=== PATIENT | male | born 1965 | race Caucasian/White ===

== ENCOUNTER 2018-09-13 19:39 | Inpatient (IN) | payer OTHER ==
[~2018-09-13] VITALS: Ht 177.8 cm; Wt 106.3 kg
[2018-09-13 19:50] VITALS: BP 196/118
[2018-09-13] MEDS ORDERED: HEPARIN for IV BOLUS 10,000 UNIT/10 ML VIAL. IV PRN (21:00)
[2018-09-13] MEDS ORDERED: HEPARIN 25,000UTS/500ML PREMIX 500 ML IV PRN (21:30)
[2018-09-13] MEDS: MULTIVIT INFUSN,ADULT 4,VIT K 10 ML, THIAMINE INJ 100 MG, FOLIC ACID INJ 1 MG in IV NOR... IV SCH (21:43)
[2018-09-13] MEDS: ATORVASTATIN CALCIUM 20 MG TABLET PO SCH (21:43)
[2018-09-13] MEDS: METOPROLOL TART IMMED RELEASE 50 MG TABLET. PO SCH (21:43)
[2018-09-13 23:00] VITALS: BP 155/91
[2018-09-13 23:12] LABS: BASO % 1 % (0-3); EOS # 0.1 x10^3/uL (0.0-0.7); EOS % 1 % (0-3); HEMATOCRIT 42.8 % (39.0-53.0); HEMOGLOBIN 14.6 g/dL (13.0-17.5); LYMPH # 2.2 x10^3/uL (1.0-4.8); LYMPH % 25 % (24-48); MEAN CORPUSCULAR HEMOGLOBIN 30 pg (25-35); MEAN CORPUSCULAR HGB CONC 34 g/dL (31-37); MEAN CORPUSCULAR VOLUME 87 fL (79-100); MONO # 0.5 x10^3/uL (0.0-1.1); MONO % 5 % (0-9); NEUT # 6.1 x10^3uL (1.8-7.7); NEUT % 68 % (31-73); PLATELET COUNT 245 x10^3/uL (140-400); RED BLOOD COUNT 4.91 x10^6/uL (4.30-5.70); RED CELL DISTRIBUTION WIDTH 12.7 % (11.5-14.5); WHITE BLOOD COUNT 8.9 x10^3/uL (4.0-11.0)
[2018-09-13 23:33] LABS: ALBUMIN 3.2 g/dL (3.4-5.0); ALBUMIN/GLOBULIN RATIO 0.9 (1.0-1.7); CALCIUM 8.6 mg/dL (8.5-10.1); CREATININE 0.8 mg/dL (0.7-1.3); GFR 100.7; TOTAL BILIRUBIN 0.6 mg/dL (0.2-1.0); TOTAL PROTEIN 6.7 g/dL (6.4-8.2)
[2018-09-13 23:37] LABS: POTASSIUM 2.7 mmol/L (3.5-5.1)
[2018-09-14] VITALS (8 sets, daily range): BP systolic 134–169; BP diastolic 88–107
[2018-09-14] MEDS ORDERED: POTASSIUM CHLORIDE 20 MEQ TABLET.ER. PO ONE
[2018-09-14 06:08] LABS: BASO # 0.1 x10^3/uL (0.0-0.2); BASO % 1 % (0-3); EOS # 0.1 x10^3/uL (0.0-0.7); EOS % 1 % (0-3); HEMATOCRIT 42.9 % (39.0-53.0); HEMOGLOBIN 14.4 g/dL (13.0-17.5); LYMPH # 1.8 x10^3/uL (1.0-4.8); LYMPH % 23 % (24-48); MEAN CORPUSCULAR HEMOGLOBIN 30 pg (25-35); MEAN CORPUSCULAR HGB CONC 34 g/dL (31-37); MEAN CORPUSCULAR VOLUME 89 fL (79-100); MONO # 0.7 x10^3/uL (0.0-1.1); MONO % 9 % (0-9); NEUT # 5.1 x10^3uL (1.8-7.7); NEUT % 66 % (31-73); PLATELET COUNT 248 x10^3/uL (140-400); RED BLOOD COUNT 4.84 x10^6/uL (4.30-5.70); RED CELL DISTRIBUTION WIDTH 13.1 % (11.5-14.5); WHITE BLOOD COUNT 7.8 x10^3/uL (4.0-11.0)
[2018-09-14 06:20] LABS: ALBUMIN 3.2 g/dL (3.4-5.0); ALBUMIN/GLOBULIN RATIO 0.9 (1.0-1.7); CREATININE 1.1 mg/dL (0.7-1.3); GFR 69.8; TOTAL BILIRUBIN 0.8 mg/dL (0.2-1.0); TOTAL PROTEIN 6.9 g/dL (6.4-8.2)
[2018-09-14 06:23] LABS: CHOLESTEROL/HDL RATIO 3.4
[2018-09-14 06:28] LABS: POTASSIUM 4.1 mmol/L (3.5-5.1)
[2018-09-14] MEDS ORDERED: ASPIRIN 325 MG TABLET PO SCH (08:00)
--- NOTE | 2018-09-14 08:56 | PDOC2 ---
NISH ROGERS ASPARAGUS BUNCHER 09/14/18 0856: CARDIAC CONSULT DATE OF CONSULT Date of Consult DATE: 09/14/18 TIME: 08:53 REASON FOR CONSULT Reason for Consult: Chest pain Elevated troponin REFERRING PHYSICIAN Referring Physician: Dr. Balbuena SOURCE Source: Chart review, Patient HISTORY OF PRESENT ILLNESS HISTORY OF PRESENT ILLNESS This is a 52 yo male who initially presented to [facility] secondary to chest pain. Patient reports he was out push mowing grass yesterday and became significantly short of breath and had pain in his central chest. Describes as pressure. No radiation. Had episode of nausea/vomiting. Was diaphoretic, but report this is chronic. No dizziness or palpitations. No worsening factors. Seem to improved after sitting and rest for about 30 minutes. Patient does report experiencing shortness of breath and chest pain with exertion intermittently for the last 6 months. More intense the last couple of days. Initial labs notable for K 2.8, Mg, 1.7, Trop 0.212, NT Pro BNP 4886. Blood pressure upon admit 192/108. With the elevated troponin level and concerns for ACS, heparin gtt was initiated and patient was transferred to [place] for further evaluation and treatment. No further pain overnight. Patient does have history of hypertension and was previously on medical therapy. Reports he did not care for his primary care provider so he stopped going for followup and ran out of his medication. Reports having normal cath x2 with most recent about 10- 15 years ago. PAST MEDICAL HISTORY Cardiovascular: HTN Pulmonary: No pertinent hx CENTRAL NERVOUS SYSTEM: Other (no pertinent history ) GI: No pertinent hx Heme/Onc: No pertinent hx Hepatobiliary: No pertinent hx Psych: No pertinent hx Musculoskeletal: Other (no pertinent history ) Rheumatologic: No pertinent hx Infectious disease: No pertinent hx ENT: No pertinent hx Renal/: No pertinent hx Endocrine: No pertinent hx Dermatology: No pertinent hx PAST SURGICAL HISTORY Past Surgical History: Other (afshin in right leg ) FAMILY HISTORY Family History: Coronary Artery Disease (father s/p CABG), Diabetes, Hypertension SOCIAL HISTORY Smoke: No ALCOHOL: other (5-6 beers per day- sometimes more ) Drugs: None Lives: with Family CURRENT MEDICATIONS CURRENT MEDICATIONS Current Medications Medications (Trade) Dose Ordered Sig/Zaid Route PRN Reason Start Time Stop Time Status Last Admin Dose Admin Metoprolol Tartrate (Lopressor) 50 mg BID PO 09/13/18 21:30 09/13/18 21:43 Atorvastatin Calcium (Lipitor) 20 mg QHS PO 09/13/18 21:30 09/13/18 21:43 Multivitamins 10 ml/Thiamine HCl 100 mg/Folic Acid 1 mg/Sodium Chloride 1,011.2 ml @ 100 mls/ hr DAILY IV 09/13/18 21:30 09/17/18 19:07 09/13/18 21:43 Heparin Sodium (Porcine) (Heparin Sodium) 2,700 unit PRN Q6HRS PRN IV FOR UFH LEVEL LESS THAN 0.2 09/13/18 21:00 09/14/18 08:30 Potassium Chloride 40 meq/ Dextrose/Sodium Chloride 1,020 ml @ 100 mls/hr [id number] IV 09/14/18 00:00 09/14/18 00:00 Potassium Chloride (Klor-Con) 40 meq 1X ONCE PO 09/14/18 00:00 09/14/18 00:01 DC 09/13/18 23:59 ALLERGIES ALLERGIES: Coded Allergies: No Known Drug Allergies (Unverified , 09/13/18) ROS Review of System 14 point ROS conducted with pertinent positives noted above in HPI. PHYSICAL EXAM General: Alert, Oriented X3, Cooperative, No acute distress HEENT: Atraumatic, PERRLA, Mucous membr. moist/pink Lungs: Clear to auscultation, Normal air movement Heart: Regular rate, Normal S1, Normal S2 Abdomen: Soft, No tenderness Extremities: No edema, Normal pulses Skin: No breakdown, No significant lesion Neuro: Normal speech, Sensation intact Psych/Mental Status: Mental status NL, Mood NL, Other (anxious, wanting to eat) MUSCULOSKELETAL: No deformity VITALS VITALS Vital Signs Date Time Temp Pulse Resp B/P (MAP) Pulse Ox O2 Delivery O2 Flow Rate FiO2 09/14/18 03:34 98.2 62 18 152/92 (112) 98 Room Air 98.2 LABS Lab: Laboratory Tests Test 09/13/18 23:00 09/14/18 05:00 White Blood Count 8.9 x10^3/uL (4.0-11.0) 7.8 x10^3/uL (4.0-11.0) Red Blood Count 4.91 x10^6/uL (4.30-5.70) 4.84 x10^6/uL (4.30-5.70) Hemoglobin 14.6 g/dL (13.0-17.5) 14.4 g/dL (13.0-17.5) Hematocrit 42.8 % (39.0-53.0) 42.9 % (39.0-53.0) Mean Corpuscular Volume 87 fL (79-100) 89 fL (79-100) Mean Corpuscular Hemoglobin 30 pg (25-35) 30 pg (25-35) Mean Corpuscular Hemoglobin Concent 34 g/dL (31-37) 34 g/dL (31-37) Red Cell Distribution Width 12.7 % (11.5-14.5) 13.1 % (11.5-14.5) Platelet Count 245 x10^3/uL (140-400) 248 x10^3/uL (140-400) Neutrophils (%) (Auto) 68 % (31-73) 66 % (31-73) Lymphocytes (%) (Auto) 25 % (24-48) 23 % (24-48) Monocytes (%) (Auto) 5 % (0-9) 9 % (0-9) Eosinophils (%) (Auto) 1 % (0-3) 1 % (0-3) Basophils (%) (Auto) 1 % (0-3) 1 % (0-3) Neutrophils # (Auto) 6.1 x10^3uL (1.8-7.7) 5.1 x10^3uL (1.8-7.7) Lymphocytes # (Auto) 2.2 x10^3/uL (1.0-4.8) 1.8 x10^3/uL (1.0-4.8) Monocytes # (Auto) 0.5 x10^3/uL (0.0-1.1) 0.7 x10^3/uL (0.0-1.1) Eosinophils # (Auto) 0.1 x10^3/uL (0.0-0.7) 0.1 x10^3/uL (0.0-0.7) Basophils # (Auto) 0.0 x10^3/uL (0.0-0.2) 0.1 x10^3/uL (0.0-0.2) Heparin Anti-Xa Act, Unfractionated 0.46 IU/mL (0.30-0.70) 0.15 IU/mL (0.30-0.70) Sodium Level 141 mmol/L (136-145) 141 mmol/L (136-145) Potassium Level 2.7 mmol/L (3.5-5.1) 4.1 mmol/L (3.5-5.1) Chloride Level 100 mmol/L (98-107) 101 mmol/L (98-107) Carbon Dioxide Level 28 mmol/L (21-32) 33 mmol/L (21-32) Anion Gap 13 (6-14) 7 (6-14) Blood Urea Nitrogen 12 mg/dL (8-26) 15 mg/dL (8-26) Creatinine 0.8 mg/dL (0.7-1.3) 1.1 mg/dL (0.7-1.3) Estimated GFR (Cockcroft-Gault) 100.7 69.8 BUN/Creatinine Ratio 15 (6-20) 14 (6-20) Glucose Level 115 mg/dL (70-99) 119 mg/dL (70-99) Calcium Level 8.6 mg/dL (8.5-10.1) 9.0 mg/dL (8.5-10.1) Total Bilirubin 0.6 mg/dL (0.2-1.0) 0.8 mg/dL (0.2-1.0) Aspartate Amino Transf (AST/SGOT) 26 U/L (15-37) 27 U/L (15-37) Alanine Aminotransferase (ALT/SGPT) 33 U/L (16-63) 34 U/L (16-63) Alkaline Phosphatase 77 U/L (46-116) 75 U/L (46-116) Troponin I Quantitative 0.247 ng/mL (0.000-0.055) 0.225 ng/mL (0.000-0.055) Total Protein 6.7 g/dL (6.4-8.2) 6.9 g/dL (6.4-8.2) Albumin 3.2 g/dL (3.4-5.0) 3.2 g/dL (3.4-5.0) Albumin/Globulin Ratio 0.9 (1.0-1.7) 0.9 (1.0-1.7) Triglycerides Level 84 mg/dL (0-150) Cholesterol Level 156 mg/dL (0-200) LDL Cholesterol, Calculated 93 mg/dL (0-100) VLDL Cholesterol, Calculated 17 mg/dL (0-40) Non-HDL Cholesterol Calculated 110 mg/dL (0-129) HDL Cholesterol 46 mg/dL (40-60) Cholesterol/HDL Ratio 3.4 ASSESSMENT/PLAN ASSESSMENT/PLAN 1. Chest pain, with typical features 3. NSTEMI; peak 0.247. On heparin gtt 3. Accelerated hypertension 4. Hypokalemia; resolved 5. Hypomagnesemia 6. ETOH; 6 beers/day Recommendations Continue ASA, BB Add lisinopril for BP control Hydralazine IV PRN Recheck Mg Keep NPO Given risk factors and symptomatology in the setting of elevated troponin level, recommend cardiac cath for definitive evaluation. R/b/a discussed and patient is agreeable. Will proceed with later this morning. CODY MEYERS MD 09/14/18 1056: CARDIAC CONSULT ASSESSMENT/PLAN ASSESSMENT/PLAN Patient seen and examined. Agree with TRAINING AND DEVELOPMENT PROJECT LEADER's assessment and plan. Clinical picture consistent with non-STEMI Continue heparin infusion per protocol and proceed with cardiac catheterization and possible angioplasty We will titrate oral antihypertensives for better blood pressure control Thank you for your consultation NISH ROGERS APRN September 14, 2018 08:56 CODY MEYERS MD September 14, 2018 10:56
[2018-09-14] MEDS: MULTIVIT INFUSN,ADULT 4,VIT K 10 ML, THIAMINE INJ 100 MG, FOLIC ACID INJ 1 MG in IV NOR... IV SCH (09:00)
[2018-09-14] MEDS ORDERED: ANTI-COAG MONITOR BY PHARMACY. MC PRN (09:30)
[2018-09-14] MEDS ORDERED: hydrALAZINE 20 MG/ML VIAL. IVP PRN (09:30)
[2018-09-14] MEDS ORDERED: NITROGLYCERIN 200 MCG/2 ML SYRINGE FOR CATH/VASC LAB. ONE (09:49)
[2018-09-14] MEDS ORDERED: VERAPAMIL 5 MG/2 ML VIAL. ONE (09:49)
[2018-09-14] MEDS: ASPIRIN ENTERIC COATED 81 MG TABLET.DR. PO SCH (09:49)
[2018-09-14] MEDS: LISINOPRIL 10 MG TABLET PO SCH (09:49)
[2018-09-14] MEDS ORDERED: fentaNYL PF VIAL 100 MCG/2 ML VIAL ONE (09:49)
[2018-09-14] MEDS ORDERED: HEPARIN for IV BOLUS 10,000 UNIT/10 ML VIAL. ONE (09:49)
[2018-09-14] MEDS: METOPROLOL TART IMMED RELEASE 50 MG TABLET. PO SCH ×2 (09:49→20:41)
[2018-09-14] MEDS ORDERED: MIDAZOLAM HCL/PF 2 MG/2 ML VIAL. ONE ×2 (09:49→10:30)
[2018-09-14] MEDS ORDERED: IOHEXOL 300 MG/ML 100ML VIAL. ONE (09:50)
[2018-09-14] MEDS ORDERED: LIDOCAINE 1% PF 2 ML VIAL. ONE (09:50)
[2018-09-14] MEDS ORDERED: hydrALAZINE 20 MG/ML VIAL. ONE (10:32)
[2018-09-14] MEDS ORDERED: NITROGLYCERIN 200 MCG/2 ML SYRINGE FOR CATH/VASC LAB. IART ONE (10:45)
[2018-09-14] MEDS ORDERED: VERAPAMIL 5 MG/2 ML VIAL. IART ONE (10:45)
[2018-09-14] MEDS ORDERED: HEPARIN for IV BOLUS 10,000 UNIT/10 ML VIAL. IART ONE (10:45)
[2018-09-14] MEDS ORDERED: fentaNYL PF VIAL 100 MCG/2 ML VIAL IV ONE (10:45)
[2018-09-14] MEDS ORDERED: LIDOCAINE 1% PF 2 ML VIAL. INJ ONE (10:45)
[2018-09-14] MEDS ORDERED: MIDAZOLAM HCL/PF 2 MG/2 ML VIAL. IV ONE (10:45)
[2018-09-14] MEDS ORDERED: IOHEXOL 300 MG/ML 100ML VIAL. IART ONE (10:45)
--- NOTE | 2018-09-14 10:58 | PDOC ---
MODERATE SEDATION ASSESSMENT RISKS/ALTERNATIVES Risks/Alternatives Risks and alternatives of this type of sedation and procedure discussed with: RISK/ALTERNATIVES: Patient H & P ON CHART H & P H & P on chart and reviewed for co-morbid conditions and appropriate labs. H&P ON CHART: Yes STATUS PREG STATUS ASSESSED: N/A MEDS/ALLERGIES REVIEWED Meds/Allergies Reviewed Medications and Allergies including time and route of recently administered narcotics and sedatives. MEDS/ALLERGIES REVIEWED: Yes ASA RATING ASA RATING: II AIRWAY ASSESSMENT Airway Assessment Airway patency, oral function limitations, presence of caps, crowns, dentures, partials, and ability to extend neck assessed. AIRWAY ASSESSMENT: Yes MALLAMPATI SCORE MALLAMPATI SCORE: II PRE-SEDATION ASSESSMENT PRE-SEDATION ASSESSMENT: Yes CODY MEYERS MD September 14, 2018 10:58
[2018-09-14] MEDS ORDERED: NITROGLYCERIN SUBLINGUAL 0.4 MG BOTTLE OF 25. SL PRN (11:00)
--- NOTE | 2018-09-14 11:12 | CARD ---
MR#: [id number] Date of Study: 09/14/2018 Ordering Physician: CODY MEYERS, Referring Physician: STANFORD EUBANKS, Tech: RT Jing (R) HUY APPROVED REPORT Technologist: RT Jing (R) HUY Nurse: Peyton Stinson R.N. Procedure(s) performed: Left heart catheterization and selective coronary angiography via right trans radial approach Fluoro time 3.1 mins Dose 48.2798 Gycm2 Contrast 66 ml omnipaque Moderate sedation 40 mins INDICATION The indication(s) include : non-STEMI . [facility] Clinical Frailty Scale [facility] Clinical Frailty Scale: Managing Well Heart Failure Heart Failure: Yes If Yes, Newly Diagnosed: No If Yes, HF Type: Diastolic If Yes, NYHA Class: Class III PROCEDURE NARRATIVE After explaining the risks, benefits and alternative options, informed consent was obtained from dave ent. Patient was brought to the cardiac Wood Type Cutter and right wrist was prepped and draped in the usual fashion after confirming a positive modified Vaughn's test. Arterial access was obtained in the righ t radial artery and a 6 Guamanian sheath was inserted. 6 Guamanian Clive catheter was used to perform pierre ective angiography of the left and right coronary arteries. 6 Guamanian pigtail catheter was used to me asure LVEDP and transaortic gradients. Left ventriculography was not performed due to elevated EDP. P atient tolerated the procedure well. Hemostasis was achieved using TR band. There were no immediate complications. The following findings were noted. FINDINGS 1. Hemodynamics: Elevated left ventricular end-diastolic pressure of 43 mmHg consistent with acute o n chronic diastolic heart failure. No pullback gradient across the aortic valve. 2. Coronary angiography: a. The left main coronary artery arose from the left sinus of Valsalva, was short, gave rise to the left anterior descending and left circumflex arteries and did not show any significant stenosis. b. The left anterior descending artery did not show any significant stenosis. c. The left circumflex artery was a large and dominant vessel that did not show any significant sten osis. d. The right coronary artery was a small and nondominant vessel arising from the right sinus of Vals grimm that did not show any significant stenosis. Conclusion 1. No significant coronary artery disease 2. Significantly elevated LVEDP consistent with acute on chronic diastolic heart failure. Recommendations Medical Therapy Signed by : Cody Meyers, Electronically Approved : 09/14/2018 11:11:51
[2018-09-14] MEDS: IV 1/2 NORMAL SALINE 1,000 ML IV SCH (12:00)
--- NOTE | 2018-09-14 12:36 | NUR ---
SS following for discharge planning. SS reviewed pt chart. Pt is from home and is currently on room air. No discharge needs noted at this time. SS will continue to follow for discharge planning.
[2018-09-14] MEDS: POTASSIUM CHLORIDE 40 MEQ in IV DEXTROSE 5 %-0.45 % NACL 1,000 ML IV SCH ×3 (20:40)
[2018-09-14] MEDS: ATORVASTATIN CALCIUM 20 MG TABLET PO SCH (20:41)
[2018-09-15] MEDS: POTASSIUM CHLORIDE 40 MEQ in IV DEXTROSE 5 %-0.45 % NACL 1,000 ML IV SCH ×3 (02:36→16:48)
[2018-09-15 03:13] VITALS: BP 140/87
[2018-09-15] MEDS: IV 1/2 NORMAL SALINE 1,000 ML IV SCH (04:40)
[2018-09-15 07:00] VITALS: BP 143/93
[2018-09-15] MEDS: MULTIVIT INFUSN,ADULT 4,VIT K 10 ML, THIAMINE INJ 100 MG, FOLIC ACID INJ 1 MG in IV NOR... IV SCH (09:00)
[2018-09-15] MEDS: ASPIRIN ENTERIC COATED 81 MG TABLET.DR. PO SCH (10:28)
[2018-09-15] MEDS: METOPROLOL TART IMMED RELEASE 50 MG TABLET. PO SCH (10:28)
[2018-09-15] MEDS: LISINOPRIL 10 MG TABLET PO SCH (10:28)
--- NOTE | 2018-09-15 10:35 | CARD ---
MR#: [id number] Date of Study: 09/15/2018 Ordering Physician: LORIE SMALL, Referring Physician: STANFORD EUBANKS, Tech: Charisse Monahan APPROVED REPORT EXAM: Two-dimensional and M-mode echocardiogram with Doppler and color Doppler. INDICATION Congestive Heart Failure RISK FACTORS Hypertension 2D DIMENSIONS RVDd3.8 (2.9-3.5cm)Left Atrium(2D)5.1 (1.6-4.0cm) IVSd1.1 (0.7-1.1cm)Aortic Root(2D)3.2 (2.0-3.7cm) LVDd6.1 (3.9-5.9cm)LVOT Diameter2.1 (1.8-2.4cm) PWd1.4 (0.7-1.1cm)LVDs4.2 (2.5-4.0cm) FS (%) 30.7 %SV107.2 ml Aortic Valve AoV Peak Travis.110.3cm/sAoV VTI16.0cm AO Peak GR.4.9mmHgLVOT Peak Travis.78.4cm/s LVOT VTI 14.76cmAO Mean GR.3mmHg LAURENT (VMAX)1.81zc5DBY (VTI)3.30cm2 Mitral Valve MV E Agartevc12.6cm/sMV DECEL TBGH070rt MV A Vpdmxgau10.6cm/sMV MPQ19ij E/A Ratio2.8MVA (PHT)5.66cm2 TDI E/Lateral E'13.9E/Medial E'15.6 Pulmonary Valve PV Peak Ulzfunwn23.8cm/sPV Peak Grad.4mmHg Tricuspid Valve TR P. Jtuawbrp024po/sRAP YCYDAPUA29isKv TR Peak Gr.66kkNvNGFW34zjLo Pulmonary Vein S1 Edlhsxoz69.5cm/sD2 Tpcmgmfg93.1cm/s PVa efdeyzsn533kjzv LEFT VENTRICLE The Left Ventricle is borderline dilated. There is normal left ventricular wall thickness. The left v entricular systolic function is moderately impaired. The Ejection Fraction is 30-35%. There is global hypokinesis of the left ventricle. The left ventricular diastolic function and filling is normal for age. RIGHT VENTRICLE The right ventricle is mildly dilated. There is normal right ventricular wall thickness. Systolic fun ction is mildly reduced. ATRIA The left atrium is mildly dilated. The right atrium is moderately dilated. The interatrial septum is intact with no evidence for an atrial septal defect or patent foramen ovale as noted on 2-D or Dopple r imaging. AORTIC VALVE The aortic valve is thickened but opens well. Doppler and Color Flow revealed no significant aortic r egurgitation. There is no significant aortic valvular stenosis. MITRAL VALVE The mitral valve is mildly thickened. There is no evidence of mitral valve prolapse. There is no mitr al valve stenosis. Doppler and Color-flow revealed trace to mild mitral regurgitation. TRICUSPID VALVE The tricuspid valve is normal in structure and function. Doppler and Color Flow revealed trace tricus pid regurgitation with an estimated PAP of 40 mmHg. There is mild-moderate pulmonary hypertension. Th ere is no tricuspid valve stenosis. PULMONIC VALVE The pulmonic valve is not well visualized. Doppler and Color Flow revealed no pulmonic valvular regur gitation. GREAT VESSELS The aortic root is normal in size. The IVC is dilated and collapses <50% with inspiration. PERICARDIAL EFFUSION There is no evidence of significant pericardial effusion. Critical Notification Critical Value: No <Conclusion> The left ventricular systolic function is moderately impaired. The Ejection Fraction is 30-35%. The left atrium is mildly dilated. Trace to mild mitral regurgitation. Trace tricuspid regurgitation with an estimated PAP of 40 mmHg. There is no evidence of significant pericardial effusion. Signed by : Rene Hutchison, Electronically Approved : 09/15/2018 10:35:13
[2018-09-15] MEDS ORDERED: LISI10TA2 PO (10:50)
[2018-09-15] MEDS ORDERED: ATOR20TA PO (10:50)
[2018-09-15] MEDS ORDERED: ASPI-630 PO (10:50)
[2018-09-15] MEDS ORDERED: METO50TA6 PO (10:50)
[2018-09-15 11:17] VITALS: BP 153/98
--- NOTE | 2018-09-15 11:31 | HP ---
ADMIT DATE: 09/13/2018 HISTORY OF PRESENT ILLNESS: The patient is a 52-year-old male patient who was seen initially at [facility] Emergency Room with a complaint of chest pain. He stated that he was out fishing, moving grass yesterday, became significantly short of breath and had retrosternal chest pain, described as pressure. It does not radiate, had episodes of nausea, vomiting, diaphoretic, but reports this is chronic. He denied any dizziness or palpitation. Denied any aggravating or relieving factors. He said that symptom has improved at rest for about 30 minutes. He did complain of shortness of breath and chest pain with exertion intermittently for the last 6 months, has been more intense in the last couple of days. He was seen in the Emergency Room, and his lab work showed that he was hypokalemic, hypomagnesemic. His troponin was high at 0.12 and beta natriuretic peptide was high at 4886. Blood pressure was also extremely high at 192/108, and therefore, he was started on heparin drip for possible acute coronary syndrome, was transferred to [facility] for further evaluation and treatment by the cardiology team. PAST MEDICAL HISTORY: Significant for hypertension, but no other important medical problems. PAST SURGICAL HISTORY: Broken right leg with intramedullary nail. FAMILY HISTORY: Significant for coronary artery disease in his father, status post CABG. Also his father has diabetes and hypertension. SOCIAL HISTORY: He lives with his girlfriend, has never before, has no children. He does not smoke, but drinks 5-6 beers per day, sometimes more. Does not use any illicit drugs. ALLERGIES: He has no known drug allergies. MEDICATIONS: He was on no medications. PHYSICAL EXAMINATION: GENERAL: On arrival to the Emergency Room, he looked well and was in no apparent respiratory distress. No pallor, jaundice, cyanosis or thyromegaly. No jugular venous distension. No lower limb edema. VITAL SIGNS: His heart rate was 110, blood pressure 196/118, temperature was 99, respiratory rate was 20 and oxygen saturation was 94%. HEAD, EYES, EARS, NOSE AND THROAT: Showed normocephalic, atraumatic. NECK: Supple. HEART: Showed normal first and second heart sounds. No gallop, rub or murmur. CHEST: Shows central trachea, equal bilateral expansion, air entry, vesicular sounds. No crepitation or rhonchi. ABDOMEN: Markedly distended, soft, nontender. NEUROLOGIC: He is awake, alert, responding appropriately. All cranial nerves intact. EXTREMITIES: He moves extremities without difficulty, ambulates without assistance or assistive devices. PERTINENT LABORATORY DATA: While at [facility] Emergency Room showed that he was hypokalemic with a potassium of 2.8. Hypomagnesemic with a magnesium 1.7. His troponin was elevated at 0.12, and his beta natriuretic peptide was 4886. His EKG showed he was in sinus tachycardia, but no evidence of ST segment elevation. ASSESSMENT AND PLAN: He was basically transferred to [facility] with chest pain, accelerated hypertension, hypokalemia, hypomagnesemia, alcoholism and non-ST segment elevation myocardial infarction. He was started on aspirin, metoprolol 50 mg twice a day and basically consulted the direct service worker and also started him on alcohol withdrawal protocol given the amount of alcohol he is drinking. STANFORD EUBANKS MD DR: MARCIE/jenn JOB#: [id number] / [id number]
--- NOTE | 2018-09-15 12:54 | DS ---
DATE OF DISCHARGE: 09/15/2018 The patient is a 52-year-old male patient who was originally seen at [facility] Emergency Room with retrosternal chest pain. He was found to be hypokalemic, hypomagnesemic and has elevated troponin. BNP was high at 4886. Also his blood pressure was extremely high and given that he has what seemed to be non-ST segment elevation myocardial infarction started on heparin drip and transferred to [facility]. We started him also on metoprolol and added lisinopril and Lipitor. Given he is a heavy alcohol drinker, we did start him also on alcohol withdrawal protocol. He was seen in consultation by the Cardiology team and he underwent cardiac catheterization, which basically showed that there is no significant coronary artery disease; however, has significantly elevated left ventricular end-diastolic pressure consistent with ehybk-rb-ogyefdl diastolic heart failure. His blood pressure is now much better controlled on metoprolol and lisinopril and has had no significant coronary artery disease and blood pressure is much better controlled. I have had a lengthy discussion with him about alcoholism and his ____ including high blood pressure and heart disease. He stated he had attempted before to quit, but is having hard time with that; however, he remained stable and a decision was made to discharge him home to continue with all his medication. PHYSICAL EXAMINATION: GENERAL: When I saw him today, he looked well and was clearly in no apparent respiratory distress. No pallor, jaundice, cyanosis, or thyromegaly. No jugular venous distension. No lower limb edema. VITAL SIGNS: His heart rate was 57, blood pressure 143/93, temperature was 97.6, respiratory rate was 18 and oxygen saturation was 93% on room air. HEAD, EYES, EARS, NOSE AND THROAT: Showed normocephalic and atraumatic. NECK: Supple. HEART: Showed normal first and second heart sounds. No gallop, rub or murmur. CHEST: Clear to auscultation. No crepitation or rhonchi. ABDOMEN: Distended, soft and nontender. NEUROLOGICAL: He is awake, alert, oriented to time, place and person. All cranial nerves are intact. He moves extremities without difficulty, ambulates without assistance or assistive devices. LABORATORY DATA: As of yesterday showed hemoglobin of 14, hematocrit 42 with normal white cell count and platelets. His BUN was 15 and creatinine 1.1. His potassium and magnesium were normal. DISCHARGE MEDICATIONS: He was discharged home to continue on following medications: Aspirin 81 mg once a day, atorvastatin calcium for Lipitor 20 mg at bedtime, lisinopril 10 mg once a day and metoprolol tartrate 50 mg twice a day. FINAL DISCHARGE DIAGNOSES: 1. Chest pain with non-ST segment elevation. His troponin has peaked at 0.247. 2. Accelerated hypertension, improved. 3. Hypokalemia, resolved. 4. Hypomagnesemia, resolved. 5. He has also a problem with alcoholism. Counseling was provided. STANFORD EUBANKS MD DR: MARCIE/jenn JOB#: [id number] / [id number]
--- NOTE | 2018-09-15 14:37 | PDOC ---
LORIE SMALL CIGARETTE MAKER 09/15/18 1437: CARDIO Progress Notes Date and Time Date of Service 09/15/2018 Time of Evaluation 1430 Subjective Subjective: No Chest Pain, No shortness of breath, No Palpitations Vitals Vitals Vital Signs Date Time Temp Pulse Resp B/P (MAP) Pulse Ox O2 Delivery O2 Flow Rate FiO2 09/15/18 11:17 97.9 65 18 153/98 (116) 94 Room Air 97.9 Weight Weight [ ] Input and Output Intake and Output Intake and Output 09/15/18 07:00 Intake Total 3140 ml Output Total 1552 ml Balance 1588 ml Intake Oral 2140 ml IV Total 1000 ml Output Urine Total 1550 ml Stool Total 2 ml Physical Exam HEENT: Neck Supple W Full Motion Chest: Symmetric LUNGS: Clear to Auscultation Heart: S1S2, RRR (SR) Abdomen: Soft N/T Extremities: No Calf Tenderness Neurology: alert, oriented, follow commands Other Exams right wrist arteritomy site intact, no erythema or pain, neurovascular status to right hand intact Assessment Assessment 1. NICM: suspect from alcoholism. LHC unrevealing for CAD 2. Alcoholism: 6 beers daily 3. Acute systolic CHF: compensated. EF 30-35% 4. HTN: controlled Recommendations 1. Follow up in 2-3 weeks 2. Continue with Lasix therapy, BB and ACEi 3. Will consider for entresto as an outpt. 4. Refused lifevest for now, will rediscuss as an outpt 5. CHF education per staff 6. Curb ETOH. CODY MEYERS MD 09/15/185: CARDIO Progress Notes Assessment Assessment Patient seen and examined. Agree with INTERNATIONAL BANK MANAGER's assessment and plan. 2D echo showed moderate LV dysfunction Cath did not show any significant CAD Continue medical management for NICMP and repeat echo in 3 months LORIE SMALL APRN September 15, 2018 14:37 CODY MEYERS MD September 15, 2018 21:05
[2018-09-15] MEDS ORDERED: FURO20TA3 PO (14:40)
--- NOTE | 2018-09-15 17:54 | NUR ---
Discharge Note: KENNY MONTANO Discharge instructions and discharge home medications reviewed with Patient and a copy given. All questions have been answered and understanding verbalized. Prescriptions given for lisinopril, metoprolol, lasix, and atorvastatin. Instructions given for follow ups and lab work. Pt verbalized understanding.
--- NOTE | 2018-09-15 18:55 | PN ---
DATE: 09/15/2018 SUBJECTIVE: The patient was seen initially at [facility] with chest pain, was transferred to [facility], was started on heparin drip and started also on metoprolol and aspirin as well as alcohol withdrawal protocol and fluid to replenish potassium and magnesium. He underwent cardiac catheterization and basically, cardiac catheterization showed no significant coronary artery disease, significantly elevated left ventricular end-diastolic pressure consistent with acute on chronic diastolic heart failure. His blood pressure medications were adjusted. PHYSICAL EXAMINATION: GENERAL: When I saw him, he looked well and was clearly in no apparent respiratory distress. No pallor, jaundice, cyanosis or thyromegaly. No jugular venous distention. No lower limb edema. VITAL SIGNS: His heart rate was 62, blood pressure was 148/73, temperature was 98, respiratory rate was 16 and oxygen saturation was 94%. HEAD, EYES, EARS, NOSE AND THROAT: Normocephalic, atraumatic. NECK: Supple. HEART: Showed normal first and second heart sounds. No gallop, rub or murmur. CHEST: Clear to auscultation. No crepitation or rhonchi. ABDOMEN: Distended, soft, nontender. NEUROLOGIC: He is awake, alert, responding appropriately. All cranial nerves intact. He moves extremities without difficulty, ambulates without assistance or assistive devices. LABORATORY DATA: Showed a white cell count of 7800, hemoglobin 14, hematocrit 42, MCV 89 and platelet count 248,000. Serum sodium 141, potassium 4.1, chloride 101, bicarbonate 33, anion gap of 7, BUN 15, creatinine 1.1, estimated GFR was 69 mL per minute. His glucose was 119. Calcium was 9, magnesium 2.1. Total bilirubin, AST, ALT, alkaline phosphatase were normal. Total protein was 6.3, albumin 3.2. His serum triglycerides were 84, total cholesterol 156, LDL cholesterol was 93, VLDL was 17, HDL cholesterol 46 and the ratio was 3.6. His TSH was 2.556. His heparin was discontinued. In summary, this is a 52-year-old male patient who was admitted with chest pain. He has no evidence of significant obstructive coronary artery disease; however, had elevated left ventricular end-diastolic pressure consistent with acute on chronic diastolic heart failure, accelerated hypertension, slightly better. We will obviously continue to adjust his medications and lisinopril was added and we will continue with alcohol withdrawal protocol. He was started also on atorvastatin calcium. We will see how he does tomorrow morning. If his blood pressure seems to be much better controlled with this adjustment, he can be discharged home. STANFORD EUBANKS MD DR: MARCIE/jenn JOB#: [id number] / [id number]
[2018-09-16] MEDS ORDERED: FUROSEMIDE 40 MG TABLET. PO SCH (09:00)
== END 2018-09-15 18:00 | disposition home or self-care (01) | DRG 280 ==
LOC: 2 NORTH 19:39
PROVIDERS: ADMIT Internal Medicine; ATTEND Internal Medicine
PROC: 4A023N7 Measurement of Cardiac Sampling and Pressure, Left Heart, Percutaneous Approach (ICD-10-PCS; principal; 2018-09-14)
PROC: B2111ZZ Fluoroscopy of Multiple Coronary Arteries using Low Osmolar Contrast (ICD-10-PCS; 2018-09-14)
DX: I21.4 Non-ST elevation (NSTEMI) myocardial infarction (principal); I50.43 Acute on chronic combined systolic (congestive) and diastolic (congestive) heart failure; I42.9 Cardiomyopathy, unspecified; E87.6 Hypokalemia; E83.42 Hypomagnesemia; I11.0 Hypertensive heart disease with heart failure; F10.20 Alcohol dependence, uncomplicated; Z82.49 Family history of ischemic heart disease and other diseases of the circulatory system; Z83.3 Family history of diabetes mellitus
CPT/HCPCS: 36415; 80053; 80061; 83735; 84443; 84484; 85025; 85520; 93306; 93458; 99152; 99153; C1769; C1892; J1644; J2250; J3010; J3480; J3490; J7030; Q9967; 99285-25

== ENCOUNTER → 2018-10-05 | Outpatient (CLI) | payer OTHER ==
[2018-09-15 11:17] VITALS: BP 153/98
[~2018-10-05] MED LIST: ASPI-630 PO; ATOR20TA PO; FURO20TA3 PO; LISI10TA2 PO; METO50TA6 PO
[2018-10-05 15:37] LABS: CALCIUM 8.9 mg/dL (8.5-10.1); CREATININE 1.3 mg/dL (0.7-1.3); GFR 57.5; MAGNESIUM 1.7 mg/dL (1.8-2.4); POTASSIUM 3.9 mmol/L (3.5-5.1)
== END | disposition home or self-care (01) ==
LOC: LAB 14:36
PROVIDERS: ATTEND Nurse Practitioner Family
DX: I42.0 Dilated cardiomyopathy (principal); I50.9 Heart failure, unspecified
CPT/HCPCS: 36415; 80048; 83735

== ENCOUNTER 2019-07-15 13:18 | Inpatient (IN) | payer OTHER ==
[~2019-07-15] VITALS: Ht 177.8 cm; Wt 106.1 kg
[2019-07-15] VITALS (11 sets, daily range): BP systolic 128–156; BP diastolic 73–85
--- NOTE | 2019-07-15 13:38 | RAD ---
EXAM: CT Head without IV contrast INDICATION: Code stroke TECHNIQUE: Multi-detector row CT images were obtained of the head without the use of IV contrast. All CT scans performed at this facility utilize dose optimization techniques as appropriate to the exam, including the following: Automated exposure control and adjustment of the mA and/or KV according to patient size (this includes techniques or standardized protocols for targeted exams where dose is indication/reason for exam). COMPARISON: None FINDINGS: BRAIN PARENCHYMA: An acute intraparenchymal hemorrhage centered in the left basal ganglia measuring 6.0 x 4.0 x 6.2 cm is present, associated with surrounding vasogenic and cytotoxic edema and gyld-wl-rveni subfalcine shift of 9 mm. There is loss of guzman-white differentiation between the left caudate nucleus and anterior limb left internal capsule. Acute infarction is difficult to exclude. VENTRICLES & EXTRA-AXIAL SPACES: Ventricles are within normal limits. Basilar cisterns are patent. No pathologic extra-axial fluid collection or mass. Intracranial vessels appear diffusely increased in density which could reflect presence of underlying atherosclerotic vascular disease. ORBITS: Orbital contents are unremarkable. SINUSES: Visualized paranasal sinuses and mastoid air cells are clear. OSSEOUS & SOFT TISSUES: Calvarium and skull base are intact. IMPRESSION: Acute left basal ganglial hemorrhage with associated huzd-li-pzhrt midline shift of 9 mm. Estimated hematoma volume is 72 mL. FOR INTERNAL CODING PURPOSES Critical result: Findings discussed with MARGOT COLMENARES at 07/15/2019 1:30 PM. RESULT CODE: (C) Electronically signed by: Jorge Pichardo MD (07/15/2019 1:34 PM) [id number]
[2019-07-15 13:44] LABS: HEMATOCRIT 40.8 % (39.0-53.0); HEMOGLOBIN 13.7 g/dL (13.0-17.5); RED BLOOD COUNT 4.75 x10^6/uL (4.30-5.70); RED CELL DISTRIBUTION WIDTH 14.1 % (11.5-14.5)
[2019-07-15 13:51] LABS: CALCIUM 9.2 mg/dL (8.5-10.1); GFR 77.6; POTASSIUM 3.3 mmol/L (3.5-5.1)
--- NOTE | 2019-07-15 13:52 | PHYS DOC ---
Past Medical History Smoking Status: Never Smoker Adult General Chief Complaint Chief Complaint: NEURO SYMPTOMS/DEFICITS HPI HPI Patient is a 53 year old Male brought in by ems with stroke alert last seen normal 12:15 PM he collapsed had right-sided hemiparesis. Patient is on Eliquis as well as blood pressure medication history limited by acuity Review of Systems Review of Systems Limited by acuity Current Medications Current Medications Current Medications Medications (Trade) Dose Ordered Sig/Zaid Start Time Stop Time Status Last Admin Dose Admin Nicardipine HCl 50 mg/Sodium Chloride 250 ml @ 25 mls/hr CONT PRN 07/15/19 12:00 07/15/19 13:58 25 MLS/HR Ondansetron HCl (Zofran) 4 mg STK-MED ONCE 07/15/19 14:21 07/15/19 14:22 DC Prothrombin Complex Concent (Human) 5000 unit/ Miscellaneous 200 ml @ 400 mls/hr 1X ONCE 07/15/19 15:00 07/15/19 15:29 Allergies Allergies Allergies Coded Allergies Type Severity Reaction Last Updated Verified No Known Drug Allergies 09/13/18 No Physical Exam Physical Exam Constitutional: Well developed, ill-appearing HENT: Normocephalic, atraumatic, bilateral external ears normal, oropharynx moist, no oral exudates, nose normal. [] Eyes: PERRLA, EOMI, conjunctiva normal, no discharge. [] Neck: Normal range of motion, no tenderness, supple, no stridor. [] Cardiovascular:Heart rate regular rhythm, no murmur [] Lungs & Thorax: Bilateral breath sounds clear to auscultation [] Abdomen: Bowel sounds normal, soft, no tenderness, no masses, no pulsatile masses. [] Skin: Warm, dry, no erythema, no rash. [] Back: No tenderness, no CVA tenderness. [] Extremities: No tenderness, no cyanosis, no clubbing, ROM intact, no edema. [] Neurologic see stroke alert Current Patient Data Vital Signs Vital Signs Date Time Temp Pulse Resp B/P (MAP) Pulse Ox O2 Delivery O2 Flow Rate FiO2 07/15/19 13:18 98.4 104 22 208/126 (153) 98 Nasal Cannula 2.0 98.4 Lab Values Laboratory Tests Test 07/15/19 13:25 07/15/19 13:29 Glucose (Fingerstick) 111 mg/dL (70-99) H White Blood Count 10.0 x10^3/uL (4.0-11.0) Red Blood Count 4.75 x10^6/uL (4.30-5.70) Hemoglobin 13.7 g/dL (13.0-17.5) Hematocrit 40.8 % (39.0-53.0) Mean Corpuscular Volume 86 fL (79-100) Mean Corpuscular Hemoglobin 29 pg (25-35) Mean Corpuscular Hemoglobin Concent 34 g/dL (31-37) Red Cell Distribution Width 14.1 % (11.5-14.5) Platelet Count 250 x10^3/uL (140-400) Prothrombin Time 16.3 SEC (11.7-14.0) H Prothrombin Time INR 1.4 (0.8-1.1) H Activated Partial Thromboplast Time 32 SEC (24-38) Sodium Level 143 mmol/L (136-145) Potassium Level 3.3 mmol/L (3.5-5.1) L Chloride Level 102 mmol/L (98-107) Carbon Dioxide Level 32 mmol/L (21-32) Anion Gap 9 (6-14) Blood Urea Nitrogen 14 mg/dL (8-26) Creatinine 1.0 mg/dL (0.7-1.3) Estimated GFR (Cockcroft-Gault) 77.6 Glucose Level 120 mg/dL (70-99) H Calcium Level 9.2 mg/dL (8.5-10.1) Troponin I Quantitative < 0.017 ng/mL (0.000-0.055) Laboratory Tests 07/15/19 13:29 Laboratory Tests 07/15/19 13:29 EKG EKG [] Interpretation Time: A. fib rate 106 no STEMI seen. Radiology/Procedures Radiology/Procedures [] Impressions: IMPRESSION: Acute left basal ganglial hemorrhage with associated edap-yy-hojew midline shift of 9 mm. Estimated hematoma volume is 72 mL. FOR INTERNAL CODING PURPOSES Critical result: Findings discussed with MARGOT COLMENARES at 07/15/2019 1:30 PM. RESULT CODE: (C) Course & Med Decision Making Course & Med Decision Making Pertinent Labs and Imaging studies reviewed. (See chart for details) []acute stroke 53 yo m acute ich destiny talked 20 minutes into er course, recommends ffp, kcentra, get bp down to 150 admit not surgical at htis time will watch carefully d/w pharmacy [facility] WILL BE STAT GROUP THERAPY COUNSELOR'D FROM [facility] (VIA PREEXISTING POLICY AT [facility] WITHIN ON EH) WE ORDERD IT AT 141 PM. I CALLED TO [facility] ON IT THREE TIMES, OF 232 PM IT HAD JUST BEEN PICKED UP AND SHOULD BE HERE IN [address] mcmanus neuro at , ALSO SPOKE WITH A DR [facility] THERE WELL RE: ANDEXANET, PT LAST HAD ELIQUIS AT 445 AM SO WOULD NOT BE A CANDIDATE FOR ANDEXANET (SHJOULD BE WITHIN 8 HOURS FROM LAST DOSE) D/W DORIS ABOUT [facility] ABOVE, SEES PATIENT IN ER 224 PM PT ACTIVELY VOMITING I STAT WENT INTO ROOM AND SUCTIONED OUT AIRWAY, THEN INTUBATED HIM Intubation note emergent consent 7.52 MAC 4 grade 1 view confirmed with quantitative end-tidal CO2 as well as breath sounds chest x-ray is pending. Etomidate and succinylcholine were used and then propofol was used immediately for post intubation sedation. I also gave him a dose of Versed and fentanyl stat immediately after intubation to try to blunt any hypertensive response as well. Patient is on nicardipine in the emergency room the most recent blood pressure prior to the intubation was 170 systolic it is coming down we are targeting a blood pressure of 150. I ALSO ordered ffp i talked to blood bank to get that down and thawed stat. Family at the bedside notified of the critical nature of the situation. I spoke with Dr. Hwang who also was going to come to see the patient. Critical care time was 80 minutes exclusive of procedures. I also called Daylin from neurosurgery back at 230 and let her know about the intubation. Dragon Disclaimer Dragon Disclaimer This electronic medical record was generated, in whole or in part, using a voice recognition dictation system. Departure Departure Impression: Primary Impression: Intracranial hemorrhage Disposition: ADMITTED INPATIENT Admitting Physician: YEYO Condition: CRITICAL Referrals: UNKNOWN PCP NAME (PCP) NIHSS Stroke Scale NIH Stroke Scale: NIH Stroke Scale Response (Comments) Value Level of Consciousness: 0 Alert/Responsive 0 LOC Questions: 1 Answers one correctly 1 LOC Commands: 0 Performs both tasks 0 Best Gaze: 1 Partial gaze palsy 1 Visual: 2 Complete hemianopia 2 Facial Palsy: 1 Minor paralysis 1 Motor - Left Arm 0 No drift 0 Motor - Right Arm 4 No movement 4 Motor - Left Leg 0 No drift 0 Motor: Right Leg 4 No movement 4 Limb Ataxia: 1 One limb 1 Sensory: 2 Severe to total loss 2 Best Language: 2 Severe aphasia 2 Dysathria: 2 Severe 2 Extinction and Inattention: 2 Extinction 2 Total 22 MARGOT COLMENARES MD Jul 15, 2019 13:52
[2019-07-15 13:54] LABS: PROTHROMBIN TIME PATIENT 16.3 SEC (11.7-14.0)
--- NOTE | 2019-07-15 13:54 | EKG ---
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
[2019-07-15] MEDS ORDERED: ONDANSETRON PF 4 MG/2 ML VIAL. ONE (14:21)
[2019-07-15] MEDS: PROPOFOL 100 ML IV PRN ×3 (14:32→20:15)
--- NOTE | 2019-07-15 14:34 | PDOC1 ---
History and Physical Date of Admission Date of Admission DATE: 07/15/19 TIME: 14:31 Identification/Chief Complaint Chief Complaint Collapse, right hemiparesis Source Source: Caregiver, Chart review, Patient History of Present Illness History of Present Illness Mr Quiñones is a 53yo M w/ PMHx CAD, Afib, HLD, CHF who p/w collapse at work with right sided hemiparesis. Yesterday his significant other noted he was having some difficulty walking on the right side, but he was able to eat dinner. Woke up in the middle of the night for an evening snack, went back to sleep. His alarm went off 0400 this morning and his notes he hit snooze, then took his morning meds, which include Eliquis 5mg, then went to work at [employer] in [place], [place] where he works with his son. His significant other then received a call from Mr Quiñones's son at 1245 describing the [id number] today He was found fallen out of a truck by his son, Ketan, who noted his "legs don't" look right and was unable to move his right side between 1215 and 1230 today. EMS and nursing noted NIHSS of 17. Code stroke called upon arrival to ED. CT head noted with acute left basal ganglial hemorrhage with associated umhb-qo-gbrji midline shift of 9 mm. Hb 13.7, platelets 250, INR 1.4 PT 16.3, Na 143, K 3.3, Cl 102, HCO3 32, BUN 14, Cr 1, Glucose 120. EKG Atrial fibrilation ED physician noted NIHSS of 20 and spoke with [facility] stroke center, initially was going to order andexxa, however this is to be dosed within 8 hours of eliquis and so Dr. Donovan has ordered KCentra and FFP x2 1424 patient was actively vomiting and ED physician elected intubation with etom idate and succinylcholine as well as a dose of Versed and fentanyl immediately after intubation and propofol was initiated for sedation. Started on nicardipine in the emergency room for 170mmHg systolic with target blood pressure of 150mmHg systolic Significant other, Paige, at the bedside notified of the critical nature of the situation, informed by Drs. Donovan, Radha, Brisa, and myself of need for ICU admission and possible poor prognosis. Past Medical History Cardiovascular: HTN Pulmonary: No pertinent hx CENTRAL NERVOUS SYSTEM: Other GI: No pertinent hx Heme/Onc: No pertinent hx Hepatobiliary: No pertinent hx Psych: No pertinent hx Musculoskeletal: Other Rheumatologic: No pertinent hx Infectious disease: No pertinent hx Renal/: No pertinent hx Endocrine: No pertinent hx Dermatology: No pertinent hx Past Surgical History Past Surgical History: Other Family History Family History: Coronary Artery Disease, Diabetes, Hypertension Social History Smoke: Quit ALCOHOL: other Drugs: None Current Medications Current Medications Current Medications Nicardipine HCl 50 mg/Sodium Chloride 250 ml @ 25 mls/hr CONT PRN IV SEE I/O RECORD Last administered on 07/15/19at 13:58; Start 07/15/19 at 12:00 Prothrombin Complex Concent (Human) 5000 unit/ Miscellaneous 200 ml @ 400 mls/hr 1X ONCE IV ; Start 07/15/19 at 15:00; Stop 07/15/19 at 15:29 Ondansetron HCl (Zofran) 4 mg STK-MED ONCE .ROUTE ; Start 07/15/19 at 14:21; Stop 07/15/19 at 14:22; Status DC Active Scripts Active Aspirin 81 Mg Tab.chew 1 Tab PO DAILY 30 Days Lipitor (Atorvastatin Calcium) 20 Mg Tablet 1 Tab PO DAILY 30 Days Lisinopril 10 Mg Tablet 1 Tab PO DAILY 30 Days Metoprolol Tartrate 50 Mg Tablet 1 Tab PO BID Reported Furosemide 20 Mg Tablet 1 Tab PO DAILY Allergies Allergies: Coded Allergies: No Known Drug Allergies (Unverified , 09/13/18) ROS Review of System Unable to completely obtain with NIHSS 20 and intubation during examination General: No: Chills, Night Sweats, Fatigue, Malaise, Appetite, Other PSYCHOLOGICAL ROS: No: Anxiety, Behavioral Disorder, Concentration difficultie, Decreased libido, Depression, Disorientation, Hallucinations, Hostility, Irritablity, Memory difficulties, Mood Swings, Obsessive thoughts, Physical abuse, Sexual abuse, Sleep disturbances, Suicidal ideation, Other Eyes: No Blurry vision, No Decreased vision, No Double vision, No Dry eyes, No Excessive tearing, No Eye Pain, No Itchy Eyes, No Loss of vision, No Photophobia, No Scotomata, No Uses contacts, No Uses glasses, No Other HEENT: No: Heacaches, Visual Changes, Hearing change, Nasal congestion, Nasal discharge, Oral lesions, Sinus pain, Sore Throat, Epistaxis, Sneezing, Snoring, Tinnitus, Vertigo, Vocal changes, Other ALLERGY AND IMMUNOLOGY: No: Hives, Insect Bite Sensitivity, Itchy/Watery Eyes, Nasal Congestion, Post Nasal Drip, Seasonal Allergies, Other Hematological and Lymphatic: No: Bleeding Problems, Blood Clots, Blood Transfusions, Brusing, Night Sweats, Pallor, Swollen Lymph Nodes, Other ENDOCRINE: No: Breast Changes, Galactorrhea, Hair Pattern Changes, Hot Flashes, Malaise/lethargy, Mood Swings, Palpitations, Polydipsia/polyuria, Skin Changes, Temperature Intolerance, Unexpected Weight Changes, Other Breast: No New/Changing Breast Lumps, No Nipple changes, No Nipple discharge, No Other Respiratory: No: Cough, Hemoptysis, Orthopnea, Pleuritic Pain, Shortness of breath, SOB with excertion, Sputum Changes, Stridor, Tachypnea, Wheezing, Other Cardiovascular: No Chest Pain, No Palpitations, No Orthopnea, No Paroxysmal Noc. Dyspnea, No Edema, No Lt Headedness, No Other Gastrointestinal: No Nausea, No Vomiting, No Abdominal Pain, No Diarrhea, No Constipation, No Melena, No Hematochezia, No Other Genitourinary: No Dysuria, No Frequency, No Incontinence, No Hematuria, No Retention, No Discharge, No Urgency, No Pain, No Flank Pain, No Other, No , No , No , No , No , No , No Musculoskeletal: Yes Gait Disturbance; No Joint Pain, No Joint Stiffness, No Joint Swelling, No Muscle Pain, No Muscular Weakness, No Pain In:, No Swelling In:, No Other Neurological: Yes Confusion, Yes Gait Disturbance, Yes Impaired Coord/balance, Yes Speech Problems, Yes Weakness; No Behavorial Changes, No Bowel/Bladder ControlChng, No Dizziness, No Headaches, No Memory Loss, No Numbness/Tingling, No Seizures, No Tremors, No Visual Changes, No Other Skin: No Dry Skin, No Eczema, No Hair Changes, No Lumps, No Mole Changes, No Mottling, No Nail Changes, No Pruritus, No Rash, No Skin Lesion Changes, No Other, No Acne Physical Exam Physical Exam Dysarthric speech and expressive aphasia, does follow commands. Decreased right visual field 2/5 right hemiparesis. Sensory:Sensory loss on the right General: Alert, Cooperative, mild distress HEENT: Atraumatic, PERRLA, EOMI, Mucous membr. moist/pink Lungs: Clear to auscultation, Normal air movement Heart: irregularly irregular Abdomen: Normal bowel sounds, Soft, No tenderness, No hepatosplenomegaly, No masses Rectal Exam: not examined Extremities: No clubbing, No cyanosis, No edema, Normal pulses, No tenderness/swelling Skin: No rashes, No breakdown, No significant lesion Neuro: Cranial nerves 3-12 NL, Reflexes 2+, Other Vitals Vitals Vital Signs Date Time Temp Pulse Resp B/P (MAP) Pulse Ox O2 Delivery O2 Flow Rate FiO2 07/15/19 13:18 98.4 104 22 208/126 (153) 98 Nasal Cannula 2.0 98.4 Labs Labs Laboratory Tests Test 07/15/19 13:25 07/15/19 13:29 Glucose (Fingerstick) 111 mg/dL (70-99) White Blood Count 10.0 x10^3/uL (4.0-11.0) Red Blood Count 4.75 x10^6/uL (4.30-5.70) Hemoglobin 13.7 g/dL (13.0-17.5) Hematocrit 40.8 % (39.0-53.0) Mean Corpuscular Volume 86 fL (79-100) Mean Corpuscular Hemoglobin 29 pg (25-35) Mean Corpuscular Hemoglobin Concent 34 g/dL (31-37) Red Cell Distribution Width 14.1 % (11.5-14.5) Platelet Count 250 x10^3/uL (140-400) Prothrombin Time 16.3 SEC (11.7-14.0) Prothromb Time International Ratio 1.4 (0.8-1.1) Activated Partial Thromboplast Time 32 SEC (24-38) Sodium Level 143 mmol/L (136-145) Potassium Level 3.3 mmol/L (3.5-5.1) Chloride Level 102 mmol/L (98-107) Carbon Dioxide Level 32 mmol/L (21-32) Anion Gap 9 (6-14) Blood Urea Nitrogen 14 mg/dL (8-26) Creatinine 1.0 mg/dL (0.7-1.3) Estimated GFR (Cockcroft-Gault) 77.6 Glucose Level 120 mg/dL (70-99) Calcium Level 9.2 mg/dL (8.5-10.1) Troponin I Quantitative < 0.017 ng/mL (0.000-0.055) Laboratory Tests Test 07/15/19 13:25 07/15/19 13:29 Glucose (Fingerstick) 111 mg/dL (70-99) White Blood Count 10.0 x10^3/uL (4.0-11.0) Red Blood Count 4.75 x10^6/uL (4.30-5.70) Hemoglobin 13.7 g/dL (13.0-17.5) Hematocrit 40.8 % (39.0-53.0) Mean Corpuscular Volume 86 fL (79-100) Mean Corpuscular Hemoglobin 29 pg (25-35) Mean Corpuscular Hemoglobin Concent 34 g/dL (31-37) Red Cell Distribution Width 14.1 % (11.5-14.5) Platelet Count 250 x10^3/uL (140-400) Prothrombin Time 16.3 SEC (11.7-14.0) Prothromb Time International Ratio 1.4 (0.8-1.1) Activated Partial Thromboplast Time 32 SEC (24-38) Sodium Level 143 mmol/L (136-145) Potassium Level 3.3 mmol/L (3.5-5.1) Chloride Level 102 mmol/L (98-107) Carbon Dioxide Level 32 mmol/L (21-32) Anion Gap 9 (6-14) Blood Urea Nitrogen 14 mg/dL (8-26) Creatinine 1.0 mg/dL (0.7-1.3) Estimated GFR (Cockcroft-Gault) 77.6 Glucose Level 120 mg/dL (70-99) Calcium Level 9.2 mg/dL (8.5-10.1) Troponin I Quantitative < 0.017 ng/mL (0.000-0.055) Images Images CT head without IV contrast: BRAIN PARENCHYMA: An acute intraparenchymal hemorrhage centered in the left basal ganglia measuring 6.0 x 4.0 x 6.2 cm is present, associated with surrounding vasogenic and cytotoxic edema and brbr-ra-yqyie subfalcine shift of 9 mm. There is loss of guzman-white differentiation between the left caudate nucleus and anterior limb left internal capsule. Acute infarction is difficult to exclude. VENTRICLES & EXTRA-AXIAL SPACES: Ventricles are within normal limits. Basilar cisterns are patent. No pathologic extra-axial fluid collection or mass. Intracranial vessels appear diffusely increased in density which could reflect presence of underlying atherosclerotic vascular disease. ORBITS: Orbital contents are unremarkable. SINUSES: Visualized paranasal sinuses and mastoid air cells are clear. OSSEOUS & SOFT TISSUES: Calvarium and skull base are intact. IMPRESSION: Acute left basal ganglial hemorrhage with associated saxu-zg-xzfdo midline shift of 9 mm. Estimated hematoma volume is 72 mL. VTE Prophylaxis Ordered VTE Prophylaxis Devices: Yes VTE Pharmacological Prophylaxi: Contraindicated Assessment/Plan Assessment/Plan A/P: Intracranial hemorrhage - Left basal ganglia hemorrhagic stroke, on Eliquis, hypertensive. Goal SBP 150mmHg, will titrate on nicardipine. Kcentra administration and FFP administration. Serial CT head Chronic systolic CHF secondary to uncontrolled HTN and high Na dietary intake Paroxysmal AFIB - was on oral cardizem and eliquis outpatient. Consult cardiology Non-ischemic cardiomyopathy - Left heart cath negative for coronary artery disease on 09/14/2018. LVEF 35%, possibly related to prior heavy ETOH use previously drank 5-6 beers daily, has recently cut back to 2 or less beers daily Accelerated hypertension - nicardipine GTT for now Hyperlipidemia - on statin ETOH use disorder - has decreased to 2 beers per day Hypokalemia - will monitor and replace FEN - NPO PPX - SCDs FULL CODE Dispo - ICU for intracranial hemorrhage. CC time 45 minutes VERONICA VICK MD Jul 15, 2019 14:34
--- NOTE | 2019-07-15 14:44 | PDOC2 ---
NEUROLOGY CONSULT Date of Admission Date of Admission DATE: 07/15/19 TIME: 14:35 Reason for Consult Reason for Consult: Intracranial hemorrhage Referring Physician Referring Physician: Dr. Jara Source Source: Caregiver (Girlfriend), Chart review, Patient History of Present Illness History of Present Illness The patient is a 53-year-old right-handed male with history of nonischemic cardiomyopathy and hypertension. He has congestive heart failure. He woke up this morning with headache and confusion. He is on Eliquis for atrial fibrillation and took it at about [address] shows large left hemispheric hemorrhage as described below. He denies any prior history of stroke, seizure, or head injury. He denies any noncompliance. Past Medical History Cardiovascular: AFIB, CHF, HTN, VA, Other (Left heart cath negative for coronary artery disease on 09/14/2018) Past Surgical History Past Surgical History: Other (Right leg) Family History Family History: DM, Hypertension Social History Social History Single, has girlfriend, used to drink alcohol, quit smoking Current Medications Current Medications Current Medications Nicardipine HCl 50 mg/Sodium Chloride 250 ml @ 25 mls/hr CONT PRN IV SEE I/O RECORD Last administered on 07/15/19at 13:58; Start 07/15/19 at 12:00 Prothrombin Complex Concent (Human) 5000 unit/ Miscellaneous 200 ml @ 400 mls/hr 1X ONCE IV ; Start 07/15/19 at 15:00; Stop 07/15/19 at 15:29 Ondansetron HCl (Zofran) 4 mg STK-MED ONCE .ROUTE ; Start 07/15/19 at 14:21; Stop 07/15/19 at 14:22; Status DC Active Scripts Active Aspirin 81 Mg Tab.chew 1 Tab PO DAILY 30 Days Lipitor (Atorvastatin Calcium) 20 Mg Tablet 1 Tab PO DAILY 30 Days Lisinopril 10 Mg Tablet 1 Tab PO DAILY 30 Days Metoprolol Tartrate 50 Mg Tablet 1 Tab PO BID Reported Furosemide 20 Mg Tablet 1 Tab PO DAILY Eliquis Fluticasone Cetirazine Allergies Allergies: Coded Allergies: No Known Drug Allergies (Unverified , 09/13/18) ROS Review of System Negative for fever, chills, weight loss, shortness of breath, chest pain, indigestion, hematochezia, melena, and dysuria. Full 14-point review of systems is negative. Physical Exam Physical Examination General: Well-developed, well-nourished white male in no acute distress HEENT: Normocephalic andatraumatic. Temporal arteriespulsatile and nontender. Neck: Supple without bruit, no meningismus Musculoskeletal: Stability:see neurologic. Gait exam:see neurologic. Tone:see neurologic.Strength:see neurologic. Neurological: Mental Status: orientation, memory, attention span/concentration, language, fund of knowledge: Dysarthric speech and expressive aphasia, does follow commands. Cranial Nerves:Pupils equal and reactive to light, extraocular movements areintact. There is a right field cut. Facial sensation is normal. There is a right central facial weakness.Palate elevates and tongue protrudes in midline. All other cranial related problems are negative except as mentioned before.Reflexes:2+ and symmetric with flexor plantar responses. Motor:2/5 right hemiparesis. Coordination:Normal on left. Not tested. Sensory:Sensory loss on the right Vitals VITALS Vital Signs Date Time Temp Pulse Resp B/P (MAP) Pulse Ox O2 Delivery O2 Flow Rate FiO2 07/15/19 13:18 98.4 104 22 208/126 (153) 98 Nasal Cannula 2.0 98.4 Labs Labs Laboratory Tests Test 07/15/19 13:25 07/15/19 13:29 Glucose (Fingerstick) 111 mg/dL (70-99) White Blood Count 10.0 x10^3/uL (4.0-11.0) Red Blood Count 4.75 x10^6/uL (4.30-5.70) Hemoglobin 13.7 g/dL (13.0-17.5) Hematocrit 40.8 % (39.0-53.0) Mean Corpuscular Volume 86 fL (79-100) Mean Corpuscular Hemoglobin 29 pg (25-35) Mean Corpuscular Hemoglobin Concent 34 g/dL (31-37) Red Cell Distribution Width 14.1 % (11.5-14.5) Platelet Count 250 x10^3/uL (140-400) Prothrombin Time 16.3 SEC (11.7-14.0) Prothromb Time International Ratio 1.4 (0.8-1.1) Activated Partial Thromboplast Time 32 SEC (24-38) Sodium Level 143 mmol/L (136-145) Potassium Level 3.3 mmol/L (3.5-5.1) Chloride Level 102 mmol/L (98-107) Carbon Dioxide Level 32 mmol/L (21-32) Anion Gap 9 (6-14) Blood Urea Nitrogen 14 mg/dL (8-26) Creatinine 1.0 mg/dL (0.7-1.3) Estimated GFR (Cockcroft-Gault) 77.6 Glucose Level 120 mg/dL (70-99) Calcium Level 9.2 mg/dL (8.5-10.1) Troponin I Quantitative < 0.017 ng/mL (0.000-0.055) Laboratory Tests Test 07/15/19 13:25 07/15/19 13:29 Glucose (Fingerstick) 111 mg/dL (70-99) White Blood Count 10.0 x10^3/uL (4.0-11.0) Red Blood Count 4.75 x10^6/uL (4.30-5.70) Hemoglobin 13.7 g/dL (13.0-17.5) Hematocrit 40.8 % (39.0-53.0) Mean Corpuscular Volume 86 fL (79-100) Mean Corpuscular Hemoglobin 29 pg (25-35) Mean Corpuscular Hemoglobin Concent 34 g/dL (31-37) Red Cell Distribution Width 14.1 % (11.5-14.5) Platelet Count 250 x10^3/uL (140-400) Prothrombin Time 16.3 SEC (11.7-14.0) Prothromb Time International Ratio 1.4 (0.8-1.1) Activated Partial Thromboplast Time 32 SEC (24-38) Sodium Level 143 mmol/L (136-145) Potassium Level 3.3 mmol/L (3.5-5.1) Chloride Level 102 mmol/L (98-107) Carbon Dioxide Level 32 mmol/L (21-32) Anion Gap 9 (6-14) Blood Urea Nitrogen 14 mg/dL (8-26) Creatinine 1.0 mg/dL (0.7-1.3) Estimated GFR (Cockcroft-Gault) 77.6 Glucose Level 120 mg/dL (70-99) Calcium Level 9.2 mg/dL (8.5-10.1) Troponin I Quantitative < 0.017 ng/mL (0.000-0.055) Images Images CT Head without IV contrast INDICATION: Code stroke TECHNIQUE: Multi-detector row CT images were obtained of the head without the use of IV contrast. All CT scans performed at this facility utilize dose optimization techniques as appropriate to the exam, including the following: Automated exposure control and adjustment of the mA and/or KV according to patient size (this includes techniques or standardized protocols for targeted exams where dose is indication/reason for exam). COMPARISON: None FINDINGS: BRAIN PARENCHYMA: An acute intraparenchymal hemorrhage centered in the left basal ganglia measuring 6.0 x 4.0 x 6.2 cm is present, associated with surrounding vasogenic and cytotoxic edema and [id number] subfalcine shift of 9 mm. There is loss of guzman-white differentiation between the left caudate nucleus and anterior limb left internal capsule. Acute infarction is difficult to exclude. VENTRICLES & EXTRA-AXIAL SPACES: Ventricles are within normal limits. Basilar cisterns are patent. No pathologic extra-axial fluid collection or mass. Intracranial vessels appear diffusely increased in density which could reflect presence of underlying atherosclerotic vascular disease. ORBITS: Orbital contents are unremarkable. SINUSES: Visualized paranasal sinuses and mastoid air cells are clear. OSSEOUS & SOFT TISSUES: Calvarium and skull base are intact. IMPRESSION: Acute left basal ganglial hemorrhage with associated [id number] midline shift of 9 mm. Estimated hematoma volume is 72 mL. Assessment/Plan Assessment/Plan Impression: Left basal ganglia hemorrhagic stroke, patient on Eliquis, hypertensive. History of cardiac disease Recommendations: As discussed with Dr. Mast, neurosurgery is consulted, he did call stroke service who state that the patient is not a candidate for Andexanet as it needs to be given within 8 hours of the last dose. Dr. Mast has ordered KCentra from [facility]. feels that there is no need for transfer. As I was finishing up, the patient started vomiting, Dr. Mast is intubating the patient. See orders. Thank you for letting me help with the patient's care. MELITA SORIANO MD Jul 15, 2019 14:44
[2019-07-15] MEDS ORDERED: MIDAZOLAM HCL/PF 5 MG/5 ML VIAL. IV ONE (14:45)
[2019-07-15] MEDS ORDERED: ACETAMINOPHEN 650 MG SUPP.RECT. PR PRN (14:45)
[2019-07-15] MEDS ORDERED: ONDANSETRON PF 4 MG/2 ML VIAL. IVP ONE (14:45)
[2019-07-15] MEDS ORDERED: 0.9 % SODIUM CHLORIDE 10 ML DISP.SYRIN. IV PRN (14:45)
[2019-07-15] MEDS ORDERED: PROPOFOL 20 ML IV ONE (14:45)
[2019-07-15] MEDS ORDERED: PHARMACY TO REVIEW MEDS MC PRN (14:45)
[2019-07-15] MEDS ORDERED: ONDANSETRON PF 4 MG/2 ML VIAL. IVP PRN (14:45)
[2019-07-15] MEDS ORDERED: fentaNYL PF VIAL 100 MCG/2 ML VIAL IVP ONE (14:45)
[2019-07-15] MEDS ORDERED: HUM PROTHROMBIN CPLX IV ONE (15:00)
[2019-07-15] MEDS ORDERED: TOTAL VOLUME IV ONE (15:00)
[2019-07-15] MEDS ORDERED: [UNRECOGNIZED DRUG - OTHER] IV ONE (15:00)
[2019-07-15] MEDS ORDERED: ETOMIDATE 20 MG/10 ML VIAL. IV ONE (15:02)
[2019-07-15] MEDS ORDERED: SUCCINYLCHOLINE 200 MG/10 ML VIAL. ONE (15:03)
--- NOTE | 2019-07-15 15:08 | RAD ---
PORTABLE CHEST 1V Clinical indications: Tube placement Comparison: September 19, 2003. Findings: ET tube is in place and the tube tip is located 3 cm above the level of the albino. NG tube is in place and the tip cannot be seen in this study. Mild increase in interstitium bilaterally is seen indicative of mild interstitial pulmonary edema. Cephalization of pulmonary flow is seen. Small left-sided pleural effusion is seen. No pneumothorax is evident. Heart size and mediastinum are unchanged. Impression: NG tube tip cannot be seen in this study. Therefore, this may be further evaluated with a KUB. Mild interstitial pulmonary edema and small left-sided pleural effusion. Cephalization of pulmonary flow. Findings may be seen with CHF or fluid overload. Electronically signed by: Jm Jean Baptiste MD (07/15/2019 3:05 PM) [facility] [place]
[2019-07-15] MEDS ORDERED: PROPOFOL 50 ML IV ONE (15:30)
--- NOTE | 2019-07-15 15:30 | NUR ---
Pt admitted to room 105 from the ED via stretcher, nurses and RT. PT is sedated and on the ventilator. Left pupil is dilated and fixed right pupil is ovoid shape, non reactive, and 3mm. PT has no purposeful movements. Decorticate posturing noted when pt moved and any painful stimulation. Lower extremities withdraw to pain. No gag noted but has a cough reflex, no corneal reflex noted. Pt Afib on the monitor. No family present for medical history. History obtained from chart.
--- NOTE | 2019-07-15 15:31 | PDOC ---
Provider Note Provider Note patient seen and examined in ED Consulted for basal ganglia hemorrhage intubated, sedated pupils equal and reactive, spontaneously moves left upper and lower extremities weakly moves right upper and lower extremities to pain CT head reviewed- large left basal ganglia hemorrhage with moderate shift KCentra has been ordered to reverse Eliquis ICU Non surgical at this time will follow re scan head in AM MARGY OLIVEIRA MD Jul 15, 2019 15:31
[2019-07-15 16:09] LABS: BASE EXCESS ABG 2 mmol/L (-3-3); HCO3 ABG 25 mmol/L (21-28); PCO2 ABG 31 mmHg (35-46); PO2 ABG 375 mmHg (75-108); SAT O2 ABG 99 % (92-99)
[2019-07-15 16:12] LABS: FIO2 ABG 100
[2019-07-15] MEDS: IV NORMAL SALINE 1000ML BAG 1,000 ML IV SCH (19:42)
[2019-07-16] VITALS (16 sets, daily range): BP systolic 119–165; BP diastolic 59–90
[2019-07-16] MEDS: PROPOFOL 100 ML IV PRN (04:33)
[2019-07-16] MEDS: IV NORMAL SALINE 1000ML BAG 1,000 ML IV SCH ×2 (04:36→10:44)
[2019-07-16 05:07] LABS: BASO % 0 % (0-3); EOS % 0 % (0-3); HEMATOCRIT 41.5 % (39.0-53.0); HEMOGLOBIN 14.1 g/dL (13.0-17.5); LYMPH # 1.7 x10^3/uL (1.0-4.8); LYMPH % 12 % (24-48); MEAN CORPUSCULAR HEMOGLOBIN 29 pg (25-35); MEAN CORPUSCULAR HGB CONC 34 g/dL (31-37); MEAN CORPUSCULAR VOLUME 86 fL (79-100); MONO # 1.5 x10^3/uL (0.0-1.1); MONO % 10 % (0-9); NEUT # 11.3 x10^3/uL (1.8-7.7); NEUT % 78 % (31-73); PLATELET COUNT 259 x10^3/uL (140-400); RED BLOOD COUNT 4.81 x10^6/uL (4.30-5.70); RED CELL DISTRIBUTION WIDTH 14.2 % (11.5-14.5); WHITE BLOOD COUNT 14.6 x10^3/uL (4.0-11.0)
[2019-07-16 05:12] LABS: PROTHROMBIN TIME PATIENT 14.5 SEC (11.7-14.0)
[2019-07-16 05:16] LABS: CHOLESTEROL/HDL RATIO 2.4
[2019-07-16 05:18] LABS: CALCIUM 9.6 mg/dL (8.5-10.1); CREATININE 0.8 mg/dL (0.7-1.3); GFR 100.4
[2019-07-16 05:24] LABS: POTASSIUM 2.7 mmol/L (3.5-5.1)
--- NOTE | 2019-07-16 06:22 | NUR ---
Potassium 2.7. Dr. Jara notified. New order received. Will implement.
[2019-07-16] MEDS ORDERED: POTASSIUM BICARB 20 MEQ EFFERVESCENT TABLET. PO ONE (06:30)
[2019-07-16] MEDS: POTASSIUM CHLORIDE 10MEQ 100 ML IV SCH ×4 (06:45→10:32)
[2019-07-16] MEDS ORDERED: IOHEXOL 300 MG/ML 100ML VIAL. IV ONE (07:00)
[2019-07-16] MEDS ORDERED: CONTRAST GIVEN. MC PRN (07:15)
--- NOTE | 2019-07-16 08:30 | RAD ---
EXAM: Supine AP view of the abdomen DATE: 07/16/2019 6:08 AM INDICATION: NG tube placement COMPARISON: No Prior FINDINGS: NG tube tip projects over the body of the stomach. Left-sided airspace opacities and left pleural effusion are partially profiled. No bowel dilatation visualized portions of the upper abdomen. Evaluation for free intraperitoneal gas is limited on this supine exam. IMPRESSION: NG tube tip projects over the body of the stomach. Electronically signed by: Cecil Hernandez MD (07/16/2019 8:27 AM) [id number]
--- NOTE | 2019-07-16 08:38 | PDOC ---
PROGRESS NOTES Assessment Problems Medical Problems: (1) Intracranial hemorrhage Status: Acute Left basal ganglia hemorrhagic stroke, patient on Eliquis, hypertensive. Worse t kofi, pupils blown, had some seizure activity last night, propofol increased. Did get Kcentra. Left pupil blew yesterday afternoon, right pupil last night History of cardiac disease Plan Awaiting follow-up head CT and CT angiogram Hold propofol so we can get a valid neurological exam Continue ICU care Will discuss with family after head CT available Subjective None Objective Vital Signs Date Time Temp Pulse Resp B/P (MAP) Pulse Ox O2 Delivery O2 Flow Rate FiO2 07/16/19 07:33 96 Ventilator 07/16/19 06:15 120/61 (80) 07/16/19 06:00 78 16 07/16/19 04:00 98.5 98.5 07/15/19 14:09 2.0 Intake and Output 07/16/19 07:00 Intake Total 1760 ml Output Total 4540 ml Balance -2780 ml Intake IV Total 1760 ml Output Urine Total 3290 ml Gastric Drainage Total 1250 ml PHYSICAL EXAM Eyes closed Pupils 7 cm fixed Slight cough EOMI. CN: no focal findings. Muscle tone: normal. Muscle strength: no movement to pain DTR: 1+ Plantar reflex: silent Gait: not examined in bed. Sensory exam: no abnormal findings. No cerebellar signs elicited. Review of Relevant I have reviewed the following items dina (where applicable) has been applied. Labs Laboratory Tests Test 07/15/19 13:25 07/15/19 13:29 07/15/19 16:00 07/16/19 04:48 Glucose (Fingerstick) 111 mg/dL (70-99) White Blood Count 10.0 x10^3/uL (4.0-11.0) 14.6 x10^3/uL (4.0-11.0) Red Blood Count 4.75 x10^6/uL (4.30-5.70) 4.81 x10^6/uL (4.30-5.70) Hemoglobin 13.7 g/dL (13.0-17.5) 14.1 g/dL (13.0-17.5) Hematocrit 40.8 % (39.0-53.0) 41.5 % (39.0-53.0) Mean Corpuscular Volume 86 fL (79-100) 86 fL (79-100) Mean Corpuscular Hemoglobin 29 pg (25-35) 29 pg (25-35) Mean Corpuscular Hemoglobin Concent 34 g/dL (31-37) 34 g/dL (31-37) Red Cell Distribution Width 14.1 % (11.5-14.5) 14.2 % (11.5-14.5) Platelet Count 250 x10^3/uL (140-400) 259 x10^3/uL (140-400) Prothrombin Time 16.3 SEC (11.7-14.0) 14.5 SEC (11.7-14.0) Prothromb Time International Ratio 1.4 (0.8-1.1) 1.2 (0.8-1.1) Activated Partial Thromboplast Time 32 SEC (24-38) Sodium Level 143 mmol/L (136-145) 156 mmol/L (136-145) Potassium Level 3.3 mmol/L (3.5-5.1) 2.7 mmol/L (3.5-5.1) Chloride Level 102 mmol/L (98-107) 112 mmol/L (98-107) Carbon Dioxide Level 32 mmol/L (21-32) 32 mmol/L (21-32) Anion Gap 9 (6-14) 12 (6-14) Blood Urea Nitrogen 14 mg/dL (8-26) 9 mg/dL (8-26) Creatinine 1.0 mg/dL (0.7-1.3) 0.8 mg/dL (0.7-1.3) Estimated GFR (Cockcroft-Gault) 77.6 100.4 Glucose Level 120 mg/dL (70-99) 124 mg/dL (70-99) Calcium Level 9.2 mg/dL (8.5-10.1) 9.6 mg/dL (8.5-10.1) Troponin I Quantitative < 0.017 ng/mL (0.000-0.055) O2 Saturation 99 % (92-99) Arterial Blood pH 7.51 (7.35-7.45) Arterial Blood pCO2 at Patient Temp 31 mmHg (35-46) Arterial Blood pO2 at Patient Temp 375 mmHg (75-108) Arterial Blood HCO3 25 mmol/L (21-28) Arterial Blood Base Excess 2 mmol/L (-3-3) FiO2 100 Neutrophils (%) (Auto) 78 % (31-73) Lymphocytes (%) (Auto) 12 % (24-48) Monocytes (%) (Auto) 10 % (0-9) Eosinophils (%) (Auto) 0 % (0-3) Basophils (%) (Auto) 0 % (0-3) Neutrophils # (Auto) 11.3 x10^3/uL (1.8-7.7) Lymphocytes # (Auto) 1.7 x10^3/uL (1.0-4.8) Monocytes # (Auto) 1.5 x10^3/uL (0.0-1.1) Eosinophils # (Auto) 0.0 x10^3/uL (0.0-0.7) Basophils # (Auto) 0.0 x10^3/uL (0.0-0.2) Triglycerides Level 81 mg/dL (0-150) Cholesterol Level 109 mg/dL (0-200) LDL Cholesterol, Calculated 47 mg/dL (0-100) VLDL Cholesterol, Calculated 16 mg/dL (0-40) Non-HDL Cholesterol Calculated 63 mg/dL (0-129) HDL Cholesterol 46 mg/dL (40-60) Cholesterol/HDL Ratio 2.4 Laboratory Tests Test 07/15/19 13:25 07/15/19 13:29 07/15/19 16:00 07/16/19 04:48 Glucose (Fingerstick) 111 mg/dL (70-99) White Blood Count 10.0 x10^3/uL (4.0-11.0) 14.6 x10^3/uL (4.0-11.0) Red Blood Count 4.75 x10^6/uL (4.30-5.70) 4.81 x10^6/uL (4.30-5.70) Hemoglobin 13.7 g/dL (13.0-17.5) 14.1 g/dL (13.0-17.5) Hematocrit 40.8 % (39.0-53.0) 41.5 % (39.0-53.0) Mean Corpuscular Volume 86 fL (79-100) 86 fL (79-100) Mean Corpuscular Hemoglobin 29 pg (25-35) 29 pg (25-35) Mean Corpuscular Hemoglobin Concent 34 g/dL (31-37) 34 g/dL (31-37) Red Cell Distribution Width 14.1 % (11.5-14.5) 14.2 % (11.5-14.5) Platelet Count 250 x10^3/uL (140-400) 259 x10^3/uL (140-400) Prothrombin Time 16.3 SEC (11.7-14.0) 14.5 SEC (11.7-14.0) Prothromb Time International Ratio 1.4 (0.8-1.1) 1.2 (0.8-1.1) Activated Partial Thromboplast Time 32 SEC (24-38) Sodium Level 143 mmol/L (136-145) 156 mmol/L (136-145) Potassium Level 3.3 mmol/L (3.5-5.1) 2.7 mmol/L (3.5-5.1) Chloride Level 102 mmol/L (98-107) 112 mmol/L (98-107) Carbon Dioxide Level 32 mmol/L (21-32) 32 mmol/L (21-32) Anion Gap 9 (6-14) 12 (6-14) Blood Urea Nitrogen 14 mg/dL (8-26) 9 mg/dL (8-26) Creatinine 1.0 mg/dL (0.7-1.3) 0.8 mg/dL (0.7-1.3) Estimated GFR (Cockcroft-Gault) 77.6 100.4 Glucose Level 120 mg/dL (70-99) 124 mg/dL (70-99) Calcium Level 9.2 mg/dL (8.5-10.1) 9.6 mg/dL (8.5-10.1) Troponin I Quantitative < 0.017 ng/mL (0.000-0.055) O2 Saturation 99 % (92-99) Arterial Blood pH 7.51 (7.35-7.45) Arterial Blood pCO2 at Patient Temp 31 mmHg (35-46) Arterial Blood pO2 at Patient Temp 375 mmHg (75-108) Arterial Blood HCO3 25 mmol/L (21-28) Arterial Blood Base Excess 2 mmol/L (-3-3) FiO2 100 Neutrophils (%) (Auto) 78 % (31-73) Lymphocytes (%) (Auto) 12 % (24-48) Monocytes (%) (Auto) 10 % (0-9) Eosinophils (%) (Auto) 0 % (0-3) Basophils (%) (Auto) 0 % (0-3) Neutrophils # (Auto) 11.3 x10^3/uL (1.8-7.7) Lymphocytes # (Auto) 1.7 x10^3/uL (1.0-4.8) Monocytes # (Auto) 1.5 x10^3/uL (0.0-1.1) Eosinophils # (Auto) 0.0 x10^3/uL (0.0-0.7) Basophils # (Auto) 0.0 x10^3/uL (0.0-0.2) Triglycerides Level 81 mg/dL (0-150) Cholesterol Level 109 mg/dL (0-200) LDL Cholesterol, Calculated 47 mg/dL (0-100) VLDL Cholesterol, Calculated 16 mg/dL (0-40) Non-HDL Cholesterol Calculated 63 mg/dL (0-129) HDL Cholesterol 46 mg/dL (40-60) Cholesterol/HDL Ratio 2.4 Medications Current Medications Nicardipine HCl 50 mg/Sodium Chloride 250 ml @ 25 mls/hr CONT PRN IV SEE I/O RECORD Last administered on 07/15/19at 13:58; Start 07/15/19 at 12:00; Stop 07/15/19 at 14:58; Status DC Prothrombin Complex Concent (Human) 5000 unit/ Miscellaneous 200 ml @ 400 mls/hr 1X ONCE IV Last administered on 07/15/19at 15:45; Start 07/15/19 at 15:00; Stop 07/15/19 at 15:29; Status DC Ondansetron HCl (Zofran) 4 mg STK-MED ONCE .ROUTE ; Start 07/15/19 at 14:21; Stop 07/15/19 at 14:22; Status DC Propofol 20 ml @ 0 mls/hr 1X ONCE IV ; Start 07/15/19 at 14:45; Stop 07/15/19 at 14:46; Status UNV Propofol 100 ml @ 1.65 mls/hr CONT PRN IV SEE I/O RECORD Last administered on 07/16/19at 04:33; Start 07/15/19 at 14:45 Ondansetron HCl (Zofran) 4 mg 1X ONCE IVP Last administered on 07/15/19at 14:22; Start 07/15/19 at 14:45; Stop 07/15/19 at 14:46; Status DC Midazolam HCl (Versed) 4 mg 1X ONCE IV Last administered on 07/15/19at 14:24; Start 07/15/19 at 14:45; Stop 07/15/19 at 14:46; Status DC Fentanyl Citrate (Fentanyl 2ml Vial) 100 mcg 1X ONCE IVP Last administered on 07/15/19at 14:30; Start 07/15/19 at 14:45; Stop 07/15/19 at 14:46; Status DC Info (Review Meds) 1 ea PRN 1X PRN MC SEE COMMENTS; Start 07/15/19 at 14:45 Sodium Chloride (Normal Saline Flush) 3 ml QSHIFT PRN IV AFTER MEDS AND BLOOD DRAWS; Start 07/15/19 at 14:45 Sodium Chloride 1,000 ml @ 100 mls/hr Q10H IV Last administered on 07/16/19at 04:36; Start 07/15/19 at 14:44 Acetaminophen (Tylenol Supp) 650 mg PRN Q6HRS PRN OH FEVER > 100.5'F; Start 07/15/19 at 14:45 Nicardipine HCl 50 mg/Sodium Chloride 250 ml @ 25 mls/hr CONT PRN IV HYPERTENSION; Start 07/15/19 at 14:45 Ondansetron HCl (Zofran) 4 mg PRN Q6HRS PRN IVP NAUSEA/VOMITING; Start 07/15/19 at 14:45 Etomidate (Amidate) 20 mg STK-MED ONCE IV ; Start 07/15/19 at 15:02; Stop 07/15/19 at 15:02; Status DC Succinylcholine Chloride (Anectine) 200 mg STK-MED ONCE .ROUTE ; Start 07/15/19 at 15:03; Stop 07/15/19 at 15:03; Status DC Propofol 50 ml @ 1.65 mls/hr 1X ONCE IV Last administered on 07/15/19at 14:27; Start 07/15/19 at 15:30; Stop 07/16/19 at 21:48 Atorvastatin Calcium (Lipitor) 20 mg DAILY PO ; Start 07/16/19 at 09:00 Potassium Chloride/Water 100 ml @ 100 mls/hr Q1H IV Last administered on 07/16/19at 07:49; Start 07/16/19 at 06:30; Stop 07/16/19 at 10:29 Potassium Bicarbonate (Potassium Effervescent Tablet) 40 meq 1X ONCE PO ; Start 07/16/19 at 06:30; Stop 07/16/19 at 06:31; Status DC Iohexol (Omnipaque 300 Mg/ml) 75 ml 1X ONCE IV ; Start 07/16/19 at 07:00; Stop 07/16/19 at 07:01; Status DC Info (CONTRAST GIVEN -- Rx MONITORING) 1 each PRN DAILY PRN MC SEE COMMENTS; Start 07/16/19 at 07:15; Stop 07/18/19 at 07:14 Active Scripts Active Aspirin 81 Mg Tab.chew 1 Tab PO DAILY 30 Days Lipitor (Atorvastatin Calcium) 20 Mg Tablet 1 Tab PO DAILY 30 Days Lisinopril 10 Mg Tablet 1 Tab PO DAILY 30 Days Metoprolol Tartrate 50 Mg Tablet 1 Tab PO BID Reported Furosemide 20 Mg Tablet 1 Tab PO DAILY Vitals/I & O Vital Sign - Last 24 Hours 07/15/19 07/15/19 07/15/19 07/15/19 13:18 13:31 13:49 14:09 Temp 98.4 98.4 Pulse 104 100 96 94 Resp 20 B/P (MAP) 208/126 (153) 188/117 (140) 184/109 (134) 169/85 (113) Pulse Ox 98 98 99 97 O2 Delivery Nasal Cannula Nasal Cannula Nasal Cannula Nasal Cannula O2 Flow Rate 2.0 2.0 2.0 2.0 07/15/19 07/15/19 07/15/19 07/15/19 14:29 14:30 14:45 14:59 Pulse 130 100 Resp 16 20 18 B/P (MAP) 192/122 (145) 119/73 (88) Pulse Ox 99 99 100 O2 Delivery Bag Valve Mask Ventilator Ventilator 07/15/19 07/15/19 07/15/19 07/15/19 15:30 15:30 15:45 15:53 Temp 98.0 98.0 Pulse 94 90 Resp 20 B/P (MAP) 140/79 (99) 150/82 (104) Pulse Ox 100 100 100 O2 Delivery Ventilator Mechanical Ventilator Ventilator Ventilator 07/15/19 07/15/19 07/15/19 07/15/19 16:00 16:15 17:00 17:42 Pulse 88 86 86 Resp 19 16 16 B/P (MAP) 128/76 (93) 132/73 (92) 134/75 (94) Pulse Ox 100 100 100 100 O2 Delivery Ventilator Ventilator Ventilator Ventilator 07/15/19 07/15/19 07/15/19 07/15/19 18:00 19:00 20:00 20:00 Temp 98.3 98.3 Pulse 78 80 76 Resp 18 17 17 B/P (MAP) 139/73 (95) 149/76 (100) 156/73 (100) Pulse Ox 100 100 100 O2 Delivery Ventilator Ventilator Ventilator Mechanical Ventilator 07/15/19 07/15/19 07/15/19 07/15/19 20:21 21:00 22:00 22:16 Pulse 70 73 Resp 16 16 B/P (MAP) 151/74 (99) 139/75 (96) Pulse Ox 100 100 100 100 O2 Delivery Ventilator Ventilator Ventilator Ventilator 07/15/19 07/16/19 07/16/19 07/16/19 23:00 00:00 00:00 00:02 Temp 98.2 98.2 Pulse 70 68 Resp 16 16 B/P (MAP) 144/85 (104) 155/82 (106) Pulse Ox 100 100 100 O2 Delivery Ventilator Mechanical Ventilator Ventilator Ventilator 07/16/19 07/16/19 07/16/19 07/16/19 01:00 01:51 02:00 03:00 Pulse 62 62 63 Resp 17 16 17 B/P (MAP) 157/83 (107) 165/90 (115) 163/80 (107) Pulse Ox 100 100 100 100 O2 Delivery Ventilator Ventilator Ventilator Ventilator 07/16/19 07/16/19 07/16/19 07/16/19 03:15 03:56 04:00 04:00 Temp 98.5 98.5 Pulse 72 Resp 16 B/P (MAP) 154/83 (106) 141/77 (98) Pulse Ox 100 100 O2 Delivery Ventilator Mechanical Ventilator Ventilator 07/16/19 07/16/19 07/16/19 07/16/19 05:00 06:00 06:15 07:33 Pulse 80 78 Resp 16 16 B/P (MAP) 121/64 (83) 119/59 (79) 120/61 (80) Pulse Ox 100 100 96 O2 Delivery Ventilator Ventilator Ventilator Intake and Output 07/15/19 07/15/19 07/16/19 15:00 23:00 07:00 Intake Total 200 ml 1560 ml Output Total 835 ml 3705 ml Balance -635 ml -2145 ml MELITA SORIANO MD Jul 16, 2019 08:37
[2019-07-16] MEDS ORDERED: ATORVASTATIN CALCIUM 20 MG TABLET PO SCH (09:00)
--- NOTE | 2019-07-16 10:24 | NUR ---
SS following for discharge planning. SS reviewed pt chart and discussed with RN. Pt is from home and is currently on the vent. SS will continue to follow for discharge planning.
[2019-07-16 10:46] LABS: BASE EXCESS ABG 8 mmol/L (-3-3); HCO3 ABG 32 mmol/L (21-28); PCO2 ABG 39 mmHg (35-46); PO2 ABG 83 mmHg (75-108); SAT O2 ABG 96 % (92-99)
[2019-07-16 10:47] LABS: FIO2 ABG 40
--- NOTE | 2019-07-16 10:49 | RAD ---
CLINICAL HISTORY: Intracranial hemorrhage, follow-up COMPARISON: CT head 07/15/2019 TECHNIQUE: CT of the head was performed without IV contrast. CT angiogram of the head and neck was then performed following the administration of IV contrast. 3-D/MIP reconstructed images were generated. Stenosis if present in the carotid arteries were measured using NASCET criteria. PQRS compliance statement - One or more of the following individualized dose reduction techniques were utilized for this study: 1. Automated exposure control 2. Adjustment of the mA and/or kV according to patient size 3. Use of iterative reconstruction technique FINDINGS: The previously seen parenchymal hemorrhage in the left basal ganglia has now significantly increased in size (now measures approximately 7.5 in AP dimension), with interval decompression into the lateral, third and fourth ventricles as well as involving the basilar cisterns. This results in mass effect and midline shift from left to right, approximately 9 mm. In addition there is now dilated appearance of the ventricles as well as effacement of the sulci bilaterally. Cerebral edema is seen centered in left basal ganglia involving the majority of the left ingram radiata. In addition there is crowding of the basilar cisterns, underlying uncal herniation is suspected. Left maxillary sinus mucosal thickening. The calvarium is grossly stable in appearance. Mildly suboptimal contrast bolus limits evaluation of the cerebral arteries. CTA of the intracranial circulation reveals normal appearing distal internal carotid arteries including the distal cervical, petrous, cavernous and supraclinoid portions. The anterior cerebral arteries are well visualized and without evidence of stenosis or occlusion. The middle cerebral arteries are well visualized and without evidence of stenosis or occlusion. The posterior cerebral arteries are well visualized and without evidence of stenosis or occlusion. Mild mass effect on the left posterior cerebral artery The vertebral basilar system is normal with no evidence of stenosis or occlusion. In the neck, the origins of the great vessels are unremarkable. The common carotid arteries, bilaterally are normal with no evidence of significant stenosis or occlusion. The internal carotid arteries are normal bilaterally with no evidence of stenosis. The vertebral arteries in the neck are well visualized bilaterally and unremarkable. ET tube and OG tube are partially profiled. IMPRESSION: 1. Significant interval increase in size of left basal ganglia hemorrhage, now with decompression into the ventricles and associated hydronephrosis. There is severe mass effect on the associated sulci as well as subfalcine and uncal herniation. Significant associated left-sided cerebral edema is also noted. 2. Hemorrhagic material is also seen in the basilar cisterns with are effaced. 3. No evidence for high-grade stenosis or occlusion of the intracranial cerebral arteries or the common or internal carotid arteries. 4. No definite aneurysm is identified although evaluation limited given slightly suboptimal contrast bolus. Findings discussed with patient's nurse Sandy Leal at 07/16/2019 10:42 AM. FOR INTERNAL CODING PURPOSES RESULT CODE: (C) Electronically signed by: Cecil Hernandez MD (07/16/2019 10:46 AM) [id number]
--- NOTE | 2019-07-16 12:37 | PDOC ---
[facility] PROGRESS NOTE Chief Complaint Chief Complaint Massive hemorrhagic stroke, patient on Eliquis (he fell off of a grain truck and hit his head yesterday) Chronic anticoagulation Previous cardiac disease Poor prognosis Hyperlipidemia Hypertension History of Present Illness History of Present Illness [id number] Patient seen and examined in the ICU I looked at the CT films myself There is a lot of blood Prognosis terminal His pupils are blown Discussed with dishwasher on their way Vitals/I&O Vitals/I&O: Vital Signs Date Time Temp Pulse Resp B/P (MAP) Pulse Ox O2 Delivery O2 Flow Rate FiO2 07/16/19 11:00 69 16 127/72 (90) 100 Ventilator 07/16/19 09:00 99.5 99.5 07/15/19 14:09 2.0 I & O 07/15/19 07/15/19 07/16/19 15:00 23:00 07:00 Intake Total 200 ml 1560 ml Output Total 835 ml 3705 ml Balance -635 ml -2145 ml Physical Exam General: Other (unresponsive) Heart: Regular rate, Normal S1, Normal S2 Lungs: Clear Abdomen: Soft Extremities: No clubbing, No cyanosis Skin: No rashes Labs Labs: Laboratory Tests Test 07/15/19 13:25 07/15/19 13:29 07/15/19 16:00 07/16/19 04:48 Glucose (Fingerstick) 111 mg/dL (70-99) White Blood Count 10.0 x10^3/uL (4.0-11.0) 14.6 x10^3/uL (4.0-11.0) Red Blood Count 4.75 x10^6/uL (4.30-5.70) 4.81 x10^6/uL (4.30-5.70) Hemoglobin 13.7 g/dL (13.0-17.5) 14.1 g/dL (13.0-17.5) Hematocrit 40.8 % (39.0-53.0) 41.5 % (39.0-53.0) Mean Corpuscular Volume 86 fL (79-100) 86 fL (79-100) Mean Corpuscular Hemoglobin 29 pg (25-35) 29 pg (25-35) Mean Corpuscular Hemoglobin Concent 34 g/dL (31-37) 34 g/dL (31-37) Red Cell Distribution Width 14.1 % (11.5-14.5) 14.2 % (11.5-14.5) Platelet Count 250 x10^3/uL (140-400) 259 x10^3/uL (140-400) Prothrombin Time 16.3 SEC (11.7-14.0) 14.5 SEC (11.7-14.0) Prothromb Time International Ratio 1.4 (0.8-1.1) 1.2 (0.8-1.1) Activated Partial Thromboplast Time 32 SEC (24-38) Sodium Level 143 mmol/L (136-145) 156 mmol/L (136-145) Potassium Level 3.3 mmol/L (3.5-5.1) 2.7 mmol/L (3.5-5.1) Chloride Level 102 mmol/L (98-107) 112 mmol/L (98-107) Carbon Dioxide Level 32 mmol/L (21-32) 32 mmol/L (21-32) Anion Gap 9 (6-14) 12 (6-14) Blood Urea Nitrogen 14 mg/dL (8-26) 9 mg/dL (8-26) Creatinine 1.0 mg/dL (0.7-1.3) 0.8 mg/dL (0.7-1.3) Estimated GFR (Cockcroft-Gault) 77.6 100.4 Glucose Level 120 mg/dL (70-99) 124 mg/dL (70-99) Calcium Level 9.2 mg/dL (8.5-10.1) 9.6 mg/dL (8.5-10.1) Troponin I Quantitative < 0.017 ng/mL (0.000-0.055) O2 Saturation 99 % (92-99) Arterial Blood pH 7.51 (7.35-7.45) Arterial Blood pCO2 at Patient Temp 31 mmHg (35-46) Arterial Blood pO2 at Patient Temp 375 mmHg (75-108) Arterial Blood HCO3 25 mmol/L (21-28) Arterial Blood Base Excess 2 mmol/L (-3-3) FiO2 100 Neutrophils (%) (Auto) 78 % (31-73) Lymphocytes (%) (Auto) 12 % (24-48) Monocytes (%) (Auto) 10 % (0-9) Eosinophils (%) (Auto) 0 % (0-3) Basophils (%) (Auto) 0 % (0-3) Neutrophils # (Auto) 11.3 x10^3/uL (1.8-7.7) Lymphocytes # (Auto) 1.7 x10^3/uL (1.0-4.8) Monocytes # (Auto) 1.5 x10^3/uL (0.0-1.1) Eosinophils # (Auto) 0.0 x10^3/uL (0.0-0.7) Basophils # (Auto) 0.0 x10^3/uL (0.0-0.2) Triglycerides Level 81 mg/dL (0-150) Cholesterol Level 109 mg/dL (0-200) LDL Cholesterol, Calculated 47 mg/dL (0-100) VLDL Cholesterol, Calculated 16 mg/dL (0-40) Non-HDL Cholesterol Calculated 63 mg/dL (0-129) HDL Cholesterol 46 mg/dL (40-60) Cholesterol/HDL Ratio 2.4 Test 07/16/19 08:00 O2 Saturation 96 % (92-99) Arterial Blood pH 7.53 (7.35-7.45) Arterial Blood pCO2 at Patient Temp 39 mmHg (35-46) Arterial Blood pO2 at Patient Temp 83 mmHg (75-108) Arterial Blood HCO3 32 mmol/L (21-28) Arterial Blood Base Excess 8 mmol/L (-3-3) FiO2 40 Review of Systems Review of Systems: Unable to obtain Assessment and Plan Assessmemt and Plan Problems Medical Problems: (1) Intracranial hemorrhage Status: Acute Massive hemorrhagic stroke, patient on Eliquis (he fell off of a grain truck and hit his head yesterday) Chronic anticoagulation Previous cardiac disease Poor prognosis Hyperlipidemia Hypertension Plan ICU monitoring until his family gets here Mechanical ventilation Control blood pressure with IV antihypertensives Lab Full code at this point but prognosis appears very poor probably terminal He is extremely critically ill Total time 33 minutes Comment Review of Relevant I have reviewed the following items dina (where applicable) has been applied. Medications: Current Medications Medications (Trade) Dose Ordered Sig/Zaid Route PRN Reason Start Time Stop Time Status Last Admin Dose Admin Prothrombin Complex Concent (Human) 5000 unit/ Miscellaneous 200 ml @ 400 mls/hr 1X ONCE IV 07/15/19 15:00 07/15/19 15:29 DC 07/15/19 15:45 Propofol 100 ml @ 1.65 mls/hr CONT PRN IV SEE I/O RECORD 07/15/19 14:45 07/16/19 08:32 DC 07/16/19 04:33 Ondansetron HCl (Zofran) 4 mg 1X ONCE IVP 07/15/19 14:45 07/15/19 14:46 DC 07/15/19 14:22 Midazolam HCl (Versed) 4 mg 1X ONCE IV 07/15/19 14:45 07/15/19 14:46 DC 07/15/19 14:24 Fentanyl Citrate (Fentanyl 2ml Vial) 100 mcg 1X ONCE IVP 07/15/19 14:45 07/15/19 14:46 DC 07/15/19 14:30 Sodium Chloride 1,000 ml @ 100 mls/hr Q10H IV 07/15/19 14:44 07/16/19 04:36 Propofol 50 ml @ 1.65 mls/hr 1X ONCE IV 07/15/19 15:30 07/16/19 21:48 07/15/19 14:27 Potassium Chloride/Water 100 ml @ 100 mls/hr Q1H IV 07/16/19 06:30 07/16/19 10:29 DC 07/16/19 10:32 Iohexol (Omnipaque 300 Mg/ml) 75 ml 1X ONCE IV 07/16/19 07:00 07/16/19 07:01 DC 07/16/19 09:35 JEFF QUACH III DO Jul 16, 2019 12:37
--- NOTE | 2019-07-16 13:48 | PDOC ---
PULMONARY PROGRESS NOTES Vitals Vital Signs Date Time Temp Pulse Resp B/P (MAP) Pulse Ox O2 Delivery O2 Flow Rate FiO2 07/16/19 12:00 Mechanical Ventilator 07/16/19 12:00 98.8 72 16 135/73 (93) 100 98.8 07/15/19 14:09 2.0 Lungs: Clear Labs Laboratory Tests Test 07/15/19 13:25 07/15/19 13:29 07/15/19 16:00 07/16/19 04:48 Glucose (Fingerstick) 111 mg/dL (70-99) White Blood Count 10.0 x10^3/uL (4.0-11.0) 14.6 x10^3/uL (4.0-11.0) Red Blood Count 4.75 x10^6/uL (4.30-5.70) 4.81 x10^6/uL (4.30-5.70) Hemoglobin 13.7 g/dL (13.0-17.5) 14.1 g/dL (13.0-17.5) Hematocrit 40.8 % (39.0-53.0) 41.5 % (39.0-53.0) Mean Corpuscular Volume 86 fL (79-100) 86 fL (79-100) Mean Corpuscular Hemoglobin 29 pg (25-35) 29 pg (25-35) Mean Corpuscular Hemoglobin Concent 34 g/dL (31-37) 34 g/dL (31-37) Red Cell Distribution Width 14.1 % (11.5-14.5) 14.2 % (11.5-14.5) Platelet Count 250 x10^3/uL (140-400) 259 x10^3/uL (140-400) Prothrombin Time 16.3 SEC (11.7-14.0) 14.5 SEC (11.7-14.0) Prothromb Time International Ratio 1.4 (0.8-1.1) 1.2 (0.8-1.1) Activated Partial Thromboplast Time 32 SEC (24-38) Sodium Level 143 mmol/L (136-145) 156 mmol/L (136-145) Potassium Level 3.3 mmol/L (3.5-5.1) 2.7 mmol/L (3.5-5.1) Chloride Level 102 mmol/L (98-107) 112 mmol/L (98-107) Carbon Dioxide Level 32 mmol/L (21-32) 32 mmol/L (21-32) Anion Gap 9 (6-14) 12 (6-14) Blood Urea Nitrogen 14 mg/dL (8-26) 9 mg/dL (8-26) Creatinine 1.0 mg/dL (0.7-1.3) 0.8 mg/dL (0.7-1.3) Estimated GFR (Cockcroft-Gault) 77.6 100.4 Glucose Level 120 mg/dL (70-99) 124 mg/dL (70-99) Calcium Level 9.2 mg/dL (8.5-10.1) 9.6 mg/dL (8.5-10.1) Troponin I Quantitative < 0.017 ng/mL (0.000-0.055) O2 Saturation 99 % (92-99) Arterial Blood pH 7.51 (7.35-7.45) Arterial Blood pCO2 at Patient Temp 31 mmHg (35-46) Arterial Blood pO2 at Patient Temp 375 mmHg (75-108) Arterial Blood HCO3 25 mmol/L (21-28) Arterial Blood Base Excess 2 mmol/L (-3-3) FiO2 100 Neutrophils (%) (Auto) 78 % (31-73) Lymphocytes (%) (Auto) 12 % (24-48) Monocytes (%) (Auto) 10 % (0-9) Eosinophils (%) (Auto) 0 % (0-3) Basophils (%) (Auto) 0 % (0-3) Neutrophils # (Auto) 11.3 x10^3/uL (1.8-7.7) Lymphocytes # (Auto) 1.7 x10^3/uL (1.0-4.8) Monocytes # (Auto) 1.5 x10^3/uL (0.0-1.1) Eosinophils # (Auto) 0.0 x10^3/uL (0.0-0.7) Basophils # (Auto) 0.0 x10^3/uL (0.0-0.2) Triglycerides Level 81 mg/dL (0-150) Cholesterol Level 109 mg/dL (0-200) LDL Cholesterol, Calculated 47 mg/dL (0-100) VLDL Cholesterol, Calculated 16 mg/dL (0-40) Non-HDL Cholesterol Calculated 63 mg/dL (0-129) HDL Cholesterol 46 mg/dL (40-60) Cholesterol/HDL Ratio 2.4 Test 07/16/19 08:00 O2 Saturation 96 % (92-99) Arterial Blood pH 7.53 (7.35-7.45) Arterial Blood pCO2 at Patient Temp 39 mmHg (35-46) Arterial Blood pO2 at Patient Temp 83 mmHg (75-108) Arterial Blood HCO3 32 mmol/L (21-28) Arterial Blood Base Excess 8 mmol/L (-3-3) FiO2 40 Laboratory Tests Test 07/15/19 16:00 07/16/19 04:48 07/16/19 08:00 O2 Saturation 99 % (92-99) 96 % (92-99) Arterial Blood pH 7.51 (7.35-7.45) 7.53 (7.35-7.45) Arterial Blood pCO2 at Patient Temp 31 mmHg (35-46) 39 mmHg (35-46) Arterial Blood pO2 at Patient Temp 375 mmHg (75-108) 83 mmHg (75-108) Arterial Blood HCO3 25 mmol/L (21-28) 32 mmol/L (21-28) Arterial Blood Base Excess 2 mmol/L (-3-3) 8 mmol/L (-3-3) FiO2 100 40 White Blood Count 14.6 x10^3/uL (4.0-11.0) Red Blood Count 4.81 x10^6/uL (4.30-5.70) Hemoglobin 14.1 g/dL (13.0-17.5) Hematocrit 41.5 % (39.0-53.0) Mean Corpuscular Volume 86 fL (79-100) Mean Corpuscular Hemoglobin 29 pg (25-35) Mean Corpuscular Hemoglobin Concent 34 g/dL (31-37) Red Cell Distribution Width 14.2 % (11.5-14.5) Platelet Count 259 x10^3/uL (140-400) Neutrophils (%) (Auto) 78 % (31-73) Lymphocytes (%) (Auto) 12 % (24-48) Monocytes (%) (Auto) 10 % (0-9) Eosinophils (%) (Auto) 0 % (0-3) Basophils (%) (Auto) 0 % (0-3) Neutrophils # (Auto) 11.3 x10^3/uL (1.8-7.7) Lymphocytes # (Auto) 1.7 x10^3/uL (1.0-4.8) Monocytes # (Auto) 1.5 x10^3/uL (0.0-1.1) Eosinophils # (Auto) 0.0 x10^3/uL (0.0-0.7) Basophils # (Auto) 0.0 x10^3/uL (0.0-0.2) Prothrombin Time 14.5 SEC (11.7-14.0) Prothromb Time International Ratio 1.2 (0.8-1.1) Sodium Level 156 mmol/L (136-145) Potassium Level 2.7 mmol/L (3.5-5.1) Chloride Level 112 mmol/L (98-107) Carbon Dioxide Level 32 mmol/L (21-32) Anion Gap 12 (6-14) Blood Urea Nitrogen 9 mg/dL (8-26) Creatinine 0.8 mg/dL (0.7-1.3) Estimated GFR (Cockcroft-Gault) 100.4 Glucose Level 124 mg/dL (70-99) Calcium Level 9.6 mg/dL (8.5-10.1) Triglycerides Level 81 mg/dL (0-150) Cholesterol Level 109 mg/dL (0-200) LDL Cholesterol, Calculated 47 mg/dL (0-100) VLDL Cholesterol, Calculated 16 mg/dL (0-40) Non-HDL Cholesterol Calculated 63 mg/dL (0-129) HDL Cholesterol 46 mg/dL (40-60) Cholesterol/HDL Ratio 2.4 Medications Active Scripts Medications Dose Route/Sig Max Daily Dose Days Date Category Furosemide 20 Mg Tablet 1 Tab PO DAILY 09/15/18 Reported Aspirin 81 Mg Tab.chew 1 Tab PO DAILY 30 09/15/18 Rx Lipitor (Atorvastatin Calcium) 20 Mg Tablet 1 Tab PO DAILY 30 09/15/18 Rx Lisinopril 10 Mg Tablet 1 Tab PO DAILY 30 09/15/18 Rx Metoprolol Tartrate 50 Mg Tablet 1 Tab PO BID 09/15/18 Rx Impression . FULL NOTE DICTATED THANKS PT FAMILY CONTEMPLATING DC SUPPORT I NATALY YI MD Jul 16, 2019 13:48
[2019-07-16] MEDS: MORPHINE SULFATE 2 MG/ML VIAL. IV PRN ×2 (13:55→14:10)
--- NOTE | 2019-07-16 14:01 | CONS ---
DATE OF CONSULTATION: 07/16/2019 ATTENDING PHYSICIAN: Dr. Jara. REASON FOR CONSULTATION: The patient seen in pulmonary consultation at the request of Dr. Jara for vent management. HISTORY OF PRESENT ILLNESS: The patient is a 53-year-old with a history of coronary artery disease, AFib, hyperlipidemia, CHF, collapsed at work and with right-sided hemiparesis. The patient presented and had imaging studies. CT head revealed a large left basal hemorrhagic stroke associated with left to right midline shift. Initially, the patient had respiratory distress. He was intubated. Arterial blood gas revealing a pH of 7.51, PaCO2 of 31, PaO2 of 375. The patient has been seen in consult by Neurosurgery. It was felt that surgery would not be helpful in this particular situation. The patient is also seen by Neurology today. On exam today, his pupils have worsened. He now has blown pupils. There was some seizure activity last night despite Keppra utilization. He underwent a repeat imaging of the head revealing significant increase in the size of the left basal ganglia hemorrhage. Family members are at the bedside including his sister and his significant other. They are contemplating withdrawing care. PAST MEDICAL HISTORY: Otherwise remarkable for hypertension, coronary artery disease, AFib, hyperlipidemia, congestive heart failure. SOCIAL HISTORY: He quit tobacco. CURRENT MEDICATIONS: List was reviewed. REVIEW OF SYSTEMS: Unobtainable secondary to the patient's condition. ALLERGIES: No known drug allergies. PHYSICAL EXAMINATION: VITAL SIGNS: Stable. O2 saturation was greater than 92%. He is currently on assist control ventilation. I disconnected him from the ventilator. He did not assist the ventilator. He did not take a spontaneous breath. He did have minimal cough reflex. HEENT: Pupils were blown. No oculocephalic reflex. LUNGS: Clear anteriorly. CARDIOVASCULAR: Regular rate and rhythm with S1, S2, no S3. ABDOMEN: Soft. EXTREMITIES: No clubbing, cyanosis or edema. NEUROLOGIC: As indicated above. NEUROLOGIC: The patient with blown pupils, not assisting the ventilator. Minimal gag reflex. IMPRESSION: 1. Acute respiratory failure secondary to cerebrovascular accident. 2. Left basal ganglia hemorrhage. 3. Hypertension. 4. Chronic systolic heart failure. 5. Paroxysmal atrial fibrillation. 6. Nonischemic cardiomyopathy. 7. Hyperlipidemia. 8. Alcohol use. PLAN: As indicated above, the patient's repeat CT revealed increased hemorrhages. His pupils today have a change. They are markedly dilated. Family is contemplating withdrawing care, I concur. The above was discussed with the family at the bedside including the sister and the significant other. I have informed them that once he is discontinued from mechanical support, if there is any distress, we were certainly utilize agents to make the patient comfortable. I do appreciate the privilege in sharing in the patient's care. NATALY TABOR MD DR: TONY/jenn JOB#: [id number] / [id number]
--- NOTE | 2019-07-16 14:12 | PDOC2 ---
CONSULT Date of Consult Date of Consult DATE: 07/16/19 TIME: 14:01 Reason for Consult Reason for Consult: Atrial fibrillation and outpatient anticoagulation in the setting of an acute left basilar ganglial hemorrhage Referring Physician Referring Physician: Dr. Chambers Identification/Chief Complaint Chief Complaint The patient was found down. Source Source: Chart review History of Present Illness Reason for Visit: The patient is a 53-year-old male with a history of atrial fibrillation treated with Cardizem and Eliquis and an nonischemic cardiomyopathy with an ejection fraction of 35% who was found having fallen from his truck. In the emergency room a CT head scan was obtained that showed an acute left basilar ganglial hemorrhage with midline shift. Eliquis was treated with KCentra and neurosurgery evaluated the patient. The patient was placed on IV nicardipine. His atrial fibrillation now remains in the 90s. His blood pressure is under somewhat better control. He was intubated in the emergency room and remains on a ventilator. Past Medical History Cardiovascular: AFIB, CHF, HTN, [place], Other (Left heart cath negative for coronary artery disease on 09/14/2018) Pulmonary: No pertinent hx CENTRAL NERVOUS SYSTEM: Other GI: No pertinent hx Heme/Onc: No pertinent hx Hepatobiliary: No pertinent hx Psych: No pertinent hx Musculoskeletal: Other Rheumatologic: No pertinent hx Infectious disease: No pertinent hx Renal/: No pertinent hx Endocrine: No pertinent hx Dermatology: No pertinent hx Past Surgical History Past Surgical History: Other Family History Family History: Coronary Artery Disease, Diabetes, Hypertension Social History Quit ALCOHOL: other (previously heavy) Drugs: None Lives: with Family Current Problem List Problem List Problems Medical Problems: (1) Intracranial hemorrhage Status: Acute Current Medications Current Medications Current Medications Nicardipine HCl 50 mg/Sodium Chloride 250 ml @ 25 mls/hr CONT PRN IV SEE I/O RECORD Last administered on 07/15/19at 13:58; Start 07/15/19 at 12:00; Stop 07/15/19 at 14:58; Status DC Prothrombin Complex Concent (Human) 5000 unit/ Miscellaneous 200 ml @ 400 mls/hr 1X ONCE IV Last administered on 07/15/19at 15:45; Start 07/15/19 at 15:00; Stop 07/15/19 at 15:29; Status DC Ondansetron HCl (Zofran) 4 mg STK-MED ONCE .ROUTE ; Start 3/19/20 at 14:21; Stop 07/15/19 at 14:22; Status DC Propofol 20 ml @ 0 mls/hr 1X ONCE IV ; Start 07/15/19 at 14:45; Stop 07/15/19 at 14:46; Status UNV Propofol 100 ml @ 1.65 mls/hr CONT PRN IV SEE I/O RECORD Last administered on 07/16/19at 04:33; Start 07/15/19 at 14:45; Stop 07/16/19 at 08:32; Status DC Ondansetron HCl (Zofran) 4 mg 1X ONCE IVP Last administered on 07/15/19at 14:22; Start 07/15/19 at 14:45; Stop 07/15/19 at 14:46; Status DC Midazolam HCl (Versed) 4 mg 1X ONCE IV Last administered on 07/15/19at 14:24; Start 07/15/19 at 14:45; Stop 07/15/19 at 14:46; Status DC Fentanyl Citrate (Fentanyl 2ml Vial) 100 mcg 1X ONCE IVP Last administered on 07/15/19at 14:30; Start 07/15/19 at 14:45; Stop 07/15/19 at 14:46; Status DC Info (Review Meds) 1 ea PRN 1X PRN MC SEE COMMENTS; Start 07/15/19 at 14:45 Sodium Chloride (Normal Saline Flush) 3 ml QSHIFT PRN IV AFTER MEDS AND BLOOD DRAWS; Start 07/15/19 at 14:45 Sodium Chloride 1,000 ml @ 100 mls/hr Q10H IV Last administered on 07/16/19at 04:36; Start 07/15/19 at 14:44 Acetaminophen (Tylenol Supp) 650 mg PRN Q6HRS PRN SD FEVER > 100.5'F; Start 07/15/19 at 14:45 Nicardipine HCl 50 mg/Sodium Chloride 250 ml @ 25 mls/hr CONT PRN IV HYPERTENSION; Start 07/15/19 at 14:45 Ondansetron HCl (Zofran) 4 mg PRN Q6HRS PRN IVP NAUSEA/VOMITING; Start 07/15/19 at 14:45 Etomidate (Amidate) 20 mg STK-MED ONCE IV ; Start 07/15/19 at 15:02; Stop 07/15/19 at 15:02; Status DC Succinylcholine Chloride (Anectine) 200 mg STK-MED ONCE .ROUTE ; Start 07/15/19 at 15:03; Stop 07/15/19 at 15:03; Status DC Propofol 50 ml @ 1.65 mls/hr 1X ONCE IV Last administered on 07/15/19at 14:27; Start 07/15/19 at 15:30; Stop 07/16/19 at 21:48 Atorvastatin Calcium (Lipitor) 20 mg DAILY PO ; Start 07/16/19 at 09:00 Potassium Chloride/Water 100 ml @ 100 mls/hr Q1H IV Last administered on 07/16/19at 10:32; Start 07/16/19 at 06:30; Stop 07/16/19 at 10:29; Status DC Potassium Bicarbonate (Potassium Effervescent Tablet) 40 meq 1X ONCE PO ; Start 07/16/19 at 06:30; Stop 07/16/19 at 06:31; Status DC Iohexol (Omnipaque 300 Mg/ml) 75 ml 1X ONCE IV Last administered on 07/16/19at 09:35; Start 07/16/19 at 07:00; Stop 07/16/19 at 07:01; Status DC Info (CONTRAST GIVEN -- Rx MONITORING) 1 each PRN DAILY PRN MC SEE COMMENTS; Start 07/16/19 at 07:15; Stop 07/18/19 at 07:14 Morphine Sulfate (Morphine Sulfate) 2 mg Q1HR PRN IV PAIN; Start 07/16/19 at 14:00; Status UNV Active Scripts Active Aspirin 81 Mg Tab.chew 1 Tab PO DAILY 30 Days Lipitor (Atorvastatin Calcium) 20 Mg Tablet 1 Tab PO DAILY 30 Days Lisinopril 10 Mg Tablet 1 Tab PO DAILY 30 Days Metoprolol Tartrate 50 Mg Tablet 1 Tab PO BID Reported Furosemide 20 Mg Tablet 1 Tab PO DAILY Allergies Allergies: Coded Allergies: No Known Drug Allergies (Unverified , 09/13/18) ROS Review of System Not obtainable Physical Exam General: Other (Intubated) Lungs: Other (Mildly decreased breath sounds.) Heart: Other (irreg. irreg.) Abdomen: Normal bowel sounds Vitals VITALS Vital Signs Date Time Temp Pulse Resp B/P (MAP) Pulse Ox O2 Delivery O2 Flow Rate FiO2 07/16/19 13:00 75 16 129/65 (86) 100 Ventilator 07/16/19 12:00 98.8 98.8 07/15/19 14:09 2.0 Labs Labs Laboratory Tests Test 07/15/19 13:25 07/15/19 13:29 07/15/19 16:00 07/16/19 04:48 Glucose (Fingerstick) 111 mg/dL (70-99) White Blood Count 10.0 x10^3/uL (4.0-11.0) 14.6 x10^3/uL (4.0-11.0) Red Blood Count 4.75 x10^6/uL (4.30-5.70) 4.81 x10^6/uL (4.30-5.70) Hemoglobin 13.7 g/dL (13.0-17.5) 14.1 g/dL (13.0-17.5) Hematocrit 40.8 % (39.0-53.0) 41.5 % (39.0-53.0) Mean Corpuscular Volume 86 fL (79-100) 86 fL (79-100) Mean Corpuscular Hemoglobin 29 pg (25-35) 29 pg (25-35) Mean Corpuscular Hemoglobin Concent 34 g/dL (31-37) 34 g/dL (31-37) Red Cell Distribution Width 14.1 % (11.5-14.5) 14.2 % (11.5-14.5) Platelet Count 250 x10^3/uL (140-400) 259 x10^3/uL (140-400) Prothrombin Time 16.3 SEC (11.7-14.0) 14.5 SEC (11.7-14.0) Prothromb Time International Ratio 1.4 (0.8-1.1) 1.2 (0.8-1.1) Activated Partial Thromboplast Time 32 SEC (24-38) Sodium Level 143 mmol/L (136-145) 156 mmol/L (136-145) Potassium Level 3.3 mmol/L (3.5-5.1) 2.7 mmol/L (3.5-5.1) Chloride Level 102 mmol/L (98-107) 112 mmol/L (98-107) Carbon Dioxide Level 32 mmol/L (21-32) 32 mmol/L (21-32) Anion Gap 9 (6-14) 12 (6-14) Blood Urea Nitrogen 14 mg/dL (8-26) 9 mg/dL (8-26) Creatinine 1.0 mg/dL (0.7-1.3) 0.8 mg/dL (0.7-1.3) Estimated GFR (Cockcroft-Gault) 77.6 100.4 Glucose Level 120 mg/dL (70-99) 124 mg/dL (70-99) Calcium Level 9.2 mg/dL (8.5-10.1) 9.6 mg/dL (8.5-10.1) Troponin I Quantitative < 0.017 ng/mL (0.000-0.055) O2 Saturation 99 % (92-99) Arterial Blood pH 7.51 (7.35-7.45) Arterial Blood pCO2 at Patient Temp 31 mmHg (35-46) Arterial Blood pO2 at Patient Temp 375 mmHg (75-108) Arterial Blood HCO3 25 mmol/L (21-28) Arterial Blood Base Excess 2 mmol/L (-3-3) FiO2 100 Neutrophils (%) (Auto) 78 % (31-73) Lymphocytes (%) (Auto) 12 % (24-48) Monocytes (%) (Auto) 10 % (0-9) Eosinophils (%) (Auto) 0 % (0-3) Basophils (%) (Auto) 0 % (0-3) Neutrophils # (Auto) 11.3 x10^3/uL (1.8-7.7) Lymphocytes # (Auto) 1.7 x10^3/uL (1.0-4.8) Monocytes # (Auto) 1.5 x10^3/uL (0.0-1.1) Eosinophils # (Auto) 0.0 x10^3/uL (0.0-0.7) Basophils # (Auto) 0.0 x10^3/uL (0.0-0.2) Triglycerides Level 81 mg/dL (0-150) Cholesterol Level 109 mg/dL (0-200) LDL Cholesterol, Calculated 47 mg/dL (0-100) VLDL Cholesterol, Calculated 16 mg/dL (0-40) Non-HDL Cholesterol Calculated 63 mg/dL (0-129) HDL Cholesterol 46 mg/dL (40-60) Cholesterol/HDL Ratio 2.4 Test 07/16/19 08:00 O2 Saturation 96 % (92-99) Arterial Blood pH 7.53 (7.35-7.45) Arterial Blood pCO2 at Patient Temp 39 mmHg (35-46) Arterial Blood pO2 at Patient Temp 83 mmHg (75-108) Arterial Blood HCO3 32 mmol/L (21-28) Arterial Blood Base Excess 8 mmol/L (-3-3) FiO2 40 Laboratory Tests Test 07/15/19 16:00 07/16/19 04:48 07/16/19 08:00 O2 Saturation 99 % (92-99) 96 % (92-99) Arterial Blood pH 7.51 (7.35-7.45) 7.53 (7.35-7.45) Arterial Blood pCO2 at Patient Temp 31 mmHg (35-46) 39 mmHg (35-46) Arterial Blood pO2 at Patient Temp 375 mmHg (75-108) 83 mmHg (75-108) Arterial Blood HCO3 25 mmol/L (21-28) 32 mmol/L (21-28) Arterial Blood Base Excess 2 mmol/L (-3-3) 8 mmol/L (-3-3) FiO2 100 40 White Blood Count 14.6 x10^3/uL (4.0-11.0) Red Blood Count 4.81 x10^6/uL (4.30-5.70) Hemoglobin 14.1 g/dL (13.0-17.5) Hematocrit 41.5 % (39.0-53.0) Mean Corpuscular Volume 86 fL (79-100) Mean Corpuscular Hemoglobin 29 pg (25-35) Mean Corpuscular Hemoglobin Concent 34 g/dL (31-37) Red Cell Distribution Width 14.2 % (11.5-14.5) Platelet Count 259 x10^3/uL (140-400) Neutrophils (%) (Auto) 78 % (31-73) Lymphocytes (%) (Auto) 12 % (24-48) Monocytes (%) (Auto) 10 % (0-9) Eosinophils (%) (Auto) 0 % (0-3) Basophils (%) (Auto) 0 % (0-3) Neutrophils # (Auto) 11.3 x10^3/uL (1.8-7.7) Lymphocytes # (Auto) 1.7 x10^3/uL (1.0-4.8) Monocytes # (Auto) 1.5 x10^3/uL (0.0-1.1) Eosinophils # (Auto) 0.0 x10^3/uL (0.0-0.7) Basophils # (Auto) 0.0 x10^3/uL (0.0-0.2) Prothrombin Time 14.5 SEC (11.7-14.0) Prothromb Time International Ratio 1.2 (0.8-1.1) Sodium Level 156 mmol/L (136-145) Potassium Level 2.7 mmol/L (3.5-5.1) Chloride Level 112 mmol/L (98-107) Carbon Dioxide Level 32 mmol/L (21-32) Anion Gap 12 (6-14) Blood Urea Nitrogen 9 mg/dL (8-26) Creatinine 0.8 mg/dL (0.7-1.3) Estimated GFR (Cockcroft-Gault) 100.4 Glucose Level 124 mg/dL (70-99) Calcium Level 9.6 mg/dL (8.5-10.1) Triglycerides Level 81 mg/dL (0-150) Cholesterol Level 109 mg/dL (0-200) LDL Cholesterol, Calculated 47 mg/dL (0-100) VLDL Cholesterol, Calculated 16 mg/dL (0-40) Non-HDL Cholesterol Calculated 63 mg/dL (0-129) HDL Cholesterol 46 mg/dL (40-60) Cholesterol/HDL Ratio 2.[address] head scan with acute left basal ganglial hemorrhage with midline shift. Assessment/Plan Assessment/Plan 1. Intracranial hemorrhage. Acute as noted above. Has been seen and evaluated by neurosurgery and neurology. Based on the clinical situation the patient is being considered for possible comfort care. 2. Atrial fibrillation. Rate is controlled. Eliquis which was taken yesterday morning has been discontinued and treated with KCentra. We'll continue to monitor. 3. Acute respiratory failure. Patient intubated in the emergency room. Remains on a ventilator. Followed by the pulmonary service. 4. Nonischemic cardiomyopathy. Ejection fraction of 35%. Continuing present treatment. Thank you for allowing us to participate in the care of your patient. JOELLEN CULP MD Jul 16, 2019 14:12
[2019-07-16] MEDS ORDERED: MORPHINE SULFATE 2 MG/ML VIAL. IV PRN (14:15)
--- NOTE | 2019-07-16 14:19 | NUR ---
NURSING NOTE PTS FAMILY AT BEDSIDE AFTER TELEPHONE DISCUSSION WITH THIS RN AND DR. JONES RELATED TO CHANGE IN PATIENTS CONDITION. SISTER ED AND GIRLFRIEND DIYA MADE DECISION TO WITHDRAW CARE AND THEY DID NOT WANT TO TAKE PART OF ORGAN DONATION AFTYER MEETING WITH ANABELL MAN. PHILOMENA THORPE AND ROBERT NOTIFIED OF CHANGE IN CONDITION. ETT WITHDRAWN AT 1410, PATIENT GIVEN MORPHINE AND ATIVAN FOR COMFORT. WILL UPDATE WITH TOD. Addendum: 07/16/19 at 1638 by PAVAN YO RN ETT TUBE WITHDRAWN AT 1402
--- NOTE | 2019-07-16 14:30 | NUR ---
Patient extubated to comfort care at family request at 1402.
--- NOTE | 2019-07-16 15:03 | NUR ---
NURSING NOTE PATIENT AT 1503. CHECKED BY THIS RN AND KIMBERLY SMITH. FAMILY AT BEDSIDE. ALL POSSESSIONS, WHICH INCLUDED A RING AND NOTHING ELSE, WAS GIVEN BACK TO GIRLFRIEND DIYA. PAPERWORK SIGNED BY SISTER ED. DR. QUACH NOTIFIED AND WILL SIGN THE CERTIFICATE.
--- NOTE | 2019-07-16 17:30 | DS ---
DATE OF DISCHARGE: 07/16/2019 SUMMARY ADMISSION DIAGNOSIS: Head trauma with massive subdural hematoma. CAUSE OF : Massive subdural hematoma (he fell off a grain truck and struck his head yesterday). HOSPITAL COURSE: The patient was a 53-year-old white male who fell off of a grain truck. His family member found him lying on the ground a couple of hours later. The patient was admitted to the ICU this morning, I saw and examined, and he was intubated. We rescanned his brain and his bleed was massive about 7 inches across. I called the family and the patient decompensated and at 1503 [address]. JEFF QUACH DO DR: SOFÍA/jenn JOB#: [id number] / [id number]
== END 2019-07-16 15:03 | disposition expired | DRG 82 ==
LOC: ER 13:18 → 1 WEST ICU 13:40 → CVICU 07-16 10:56
PROVIDERS: ADMIT Internal Medicine; ATTEND Internal Medicine
PROC: 0BH17EZ Insertion of Endotracheal Airway into Trachea, Via Natural or Artificial Opening (ICD-10-PCS; principal; 2019-07-15)
PROC: 5A1935Z Respiratory Ventilation, Less than 24 Consecutive Hours (ICD-10-PCS; 2019-07-15)
PROC: 30233K1 Transfusion of Nonautologous Frozen Plasma into Peripheral Vein, Percutaneous Approach (ICD-10-PCS; 2019-07-15)
DX: S06.5X9A Traumatic subdural hemorrhage with loss of consciousness of unspecified duration, initial encounter (principal); J96.00 Acute respiratory failure, unspecified whether with hypoxia or hypercapnia; G81.91 Hemiplegia, unspecified affecting right dominant side; I50.22 Chronic systolic (congestive) heart failure; I42.8 Other cardiomyopathies; Z82.49 Family history of ischemic heart disease and other diseases of the circulatory system; Z79.01 Long term (current) use of anticoagulants; Z87.891 Personal history of nicotine dependence; R29.720 NIHSS score 20; I48.0 Paroxysmal atrial fibrillation; R56.9 Unspecified convulsions; Z83.3 Family history of diabetes mellitus; I25.10 Atherosclerotic heart disease of native coronary artery without angina pectoris; E87.6 Hypokalemia; I11.0 Hypertensive heart disease with heart failure; E78.5 Hyperlipidemia, unspecified; W17.89XA Other fall from one level to another, initial encounter; Y93.89 Activity, other specified; Y92.89 Other specified places as the place of occurrence of the external cause; Y99.8 Other external cause status
CPT/HCPCS: 31500; 36415; 36600; 51702; 70450; 70496; 70498; 71045; 74018; 80048; 80061; 82805; 82962; 84484; 85025; 85027; 85610; 85730; 86850; 86900; 86901; 86927; 93005; 94003; 99292; J2060; J2250; J2270; J2405; J2704; J3010; J3480; J3490; J7030; J7050; J7194; P9017; Q9967; 99291-25; G0378